=== PATIENT | female | born 1960 | race Caucasian/White ===

== ENCOUNTER → 2016-11-11 | Outpatient (CLI) | payer MEDICARE ==
--- NOTE | 2016-11-11 16:21 | XR ---
EXAMINATION TYPE: XR chest 2V DATE OF EXAM: 11/11/2016 3:17 PM HISTORY: Left-sided rib pain. REFERENCE: Previous study dated 03/21/2014. FINDINGS: The lungs are clear. Pleural spaces are clear. Heart size is normal. No left-sided rib lesi on is seen. IMPRESSION: NORMAL CHEST.
--- NOTE | 2016-11-11 16:23 | XR ---
EXAMINATION TYPE: XR ribs LT DATE OF EXAM ORDERED: 11/11/2016 3:17 PM HISTORY: Left-sided rib pain. COMPARISON: None. FINDINGS: No displaced rib fractures seen. The underlying lung is unremarkable. No pneumothorax is i dentified. IMPRESSION: I DO NOT IDENTIFY A DISPLACED RIB FRACTURE AT THIS TIME.
== END | disposition home or self-care (01) ==
LOC: RADXRMAIN 14:58
PROVIDERS: ATTEND Internal Medicine
DX: S29.9XXA Unspecified injury of thorax, initial encounter (principal); R05 Cough
CPT/HCPCS: 71020

== ENCOUNTER → 2017-06-14 | Outpatient (CLI) | payer MEDICARE ==
--- NOTE | 2017-06-15 11:44 | MM ---
Reason for exam: screening (asymptomatic). Last mammogram was performed 2 years and 1 month ago. History: Patient is postmenopausal. Family history of breast cancer in mother at age 50, breast cancer in maternal grandmother, and breast cancer in maternal aunt. Physical Findings: A clinical breast exam by your physician is recommended on an annual basis and results should be correlated with mammographic findings. MG Screening Mammo w CAD Bilateral CC and MLO view(s) were taken. XCCL view(s) were taken of the left breast. Prior study comparison: April 29, 2015, bilateral MG screening mammo w CAD. March 23, 2014, bilateral MG screening mammo w CAD. There are scattered fibroglandular densities. No significant changes when compared with prior studies. ASSESSMENT: Benign, BI-RAD 2 RECOMMENDATION: Routine screening mammogram of both breasts in 1 year.
== END | disposition home or self-care (01) ==
LOC: RADMAMWWP 13:38
PROVIDERS: ATTEND Internal Medicine
DX: Z12.31 Encounter for screening mammogram for malignant neoplasm of breast (principal)

== ENCOUNTER → 2017-09-23 | Outpatient (CLI) | payer MEDICARE ==
[2017-09-23 09:26] LABS: Basophils # (A) 0.1 k/uL (0-0.2); Basophils % (A) 1 %; CH 29.9; CHCM 32.6; Eosinophils # (A) 0.3 k/uL (0-0.7); Eosinophils % (A) 5 %; HCT 39.6 % (34.0-46.0); HDW 2.06; HGB 12.7 gm/dL (11.4-16.0); Luc # (Auto) 0.16; Luc % (Auto) 3; Lymphocytes # (A) 2.3 k/uL (1.0-4.8); Lymphocytes % (A) 38 %; MCH 29.5 pg (25.0-35.0); MCHC 32.1 g/dL (31.0-37.0); MCV 92.1 fL (80.0-100.0); Mean Platelet Volume 6.6; Monocytes # (A) 0.5 k/uL (0-1.0); Monocytes % (A) 8 %; Neutrophils # (A) 2.8 k/uL (1.3-7.7); Neutrophils % (A) 46 %; RBC 4.29 m/uL (3.80-5.40); RDW 13.3 % (11.5-15.5); WBC 6.1 k/uL (3.8-10.6); WBC (Perox) 6.33
[2017-09-23 09:40] LABS: Carbamazepine (Tegretol) 5.5 ug/mL
== END | disposition home or self-care (01) ==
LOC: LABWHC1 09:03
PROVIDERS: ATTEND Psychiatry & Neurology Neurology
DX: G40.209 Localization-related (focal) (partial) symptomatic epilepsy and epileptic syndromes with complex partial seizures, not intractable, without status epilepticus (principal)
CPT/HCPCS: 36415; 80156; 80177; 84450; 84460; 85025

== ENCOUNTER → 2018-09-26 | Outpatient (CLI) | payer MEDICARE | LOC: LABWHC1 10:24 | PROVIDERS: ATTEND Physician Assistant | DX: R21 Rash and other nonspecific skin eruption (principal) | CPT/HCPCS: 36415; 82565; 84450; 84460; 84520 ==

== ENCOUNTER 2019-02-16 09:57 | Day surgery (SDC) | payer MEDICARE ==
[2019-02-14 11:21] VITALS: BMI 29.0
[~2019-02-16 09:57] MED LIST: LACTATED RINGERS 1,000 ML IV SCH; LIDOCAINE 1% 20 ML VIAL (10MG/ML) FOR IV START INTRADERMA PRN; MIDAZOLAM (PF) 2 MG/2 ML VIAL IV PRN
[2019-02-16 10:53] VITALS: TEMP 98.4
[2019-02-16] MEDS ORDERED: LIDOCAINE 1% 20 ML VIAL (10MG/ML) FOR IV START INTRADERMA ONE (10:55)
[2019-02-16] MEDS ORDERED: LIDOCAINE 1% INJ 10MG/ML (20 ML MDV) ONE (11:52)
[2019-02-16] MEDS ORDERED: PROPOFOL 10 MG/ML 20 ML VIAL IV ONE (11:52)
[2019-02-16 12:20] VITALS: RESP 16
--- NOTE | 2019-02-16 12:24 | P.PCN ---
Date of Procedure: 02/16/19 Procedure(s) Performed: Procedure: Total colonoscopy. Preoperative diagnosis: Screening for neoplasia, patient has history of polyps. Postoperative diagnosis: Exam within normal limits. Preparation: HalfLytely prep. Sedation: Was provided by anesthesia. Brief clinical history: The patient is a 58-year-old female who is scheduled for this evaluation for screening for neoplasia because of history of polyps. Her last exam was in 2008. The patient has no abdominal complaints, bleeding or anemia. Procedure: With the patient on her left lateral decubitus position and after informed consent and adequate sedation, the perianal area was inspected and it did not show any fissures or fistulas. No masses felt on digital rectal examination. The Olympus CFH 190L video colonoscope was then inserted in the rectum in the usual fashion and advanced to the cecum. The mucosa appeared healthy. No polyps or tumors were seen or any obvious diverticular disease or other pathology. I retroflexed the endoscope in the rectum before the endoscope was withdrawn. The patient tolerated the procedure well. Plan: The patient was reassured. She will follow-up with you as planned and I recommended repeat exam in 5 years because of the history of polyps.
[2019-02-16 12:33] VITALS: BP 101/60; PULSE 70
== END 2019-02-16 12:44 | disposition home or self-care (01) ==
LOC: ORWHC2ENDO 09:57
DX: Z12.11 Encounter for screening for malignant neoplasm of colon (principal); Z86.010 Personal history of colon polyps; K21.9 Gastro-esophageal reflux disease without esophagitis; J45.909 Unspecified asthma, uncomplicated; E07.9 Disorder of thyroid, unspecified; G40.909 Epilepsy, unspecified, not intractable, without status epilepticus; F17.210 Nicotine dependence, cigarettes, uncomplicated; Z79.890 Hormone replacement therapy; Z79.899 Other long term (current) drug therapy
CPT/HCPCS: J2001; J2704; G0105

== ENCOUNTER → 2019-02-22 | Outpatient (CLI) | payer MEDICARE ==
--- NOTE | 2019-02-23 12:12 | MM ---
Reason for exam: screening (asymptomatic). Last mammogram was performed 1 year and 8 months ago. History: Patient is postmenopausal. Family history of breast cancer in mother at age 50, breast cancer in maternal grandmother, and breast cancer in maternal aunt. Physical Findings: A clinical breast exam by your physician is recommended on an annual basis and results should be correlated with mammographic findings. MG 3D Screening Mammo W/Cad Bilateral CC and MLO view(s) were taken. Prior study comparison: June 14, 2017, bilateral MG screening mammo w CAD. April 29, 2015, bilateral MG screening mammo w CAD. The breast tissue is heterogeneously dense. This may lower the sensitivity of mammography. There is no discrete abnormality. No significant changes when compared with prior studies. ASSESSMENT: Benign, BI-RAD 2 RECOMMENDATION: Routine screening mammogram of both breasts in 1 year.
== END ==
LOC: RADMAMWWP 14:05
PROVIDERS: ATTEND Internal Medicine
DX: Z12.31 Encounter for screening mammogram for malignant neoplasm of breast (principal)
CPT/HCPCS: 77063; 77067

== ENCOUNTER → 2019-07-25 | Outpatient (CLI) | payer MEDICARE ==
[2019-07-26 08:54] LABS: Levetiracetam (Keppra) 5.9 ug/mL (3.0-60.0)
== END | disposition home or self-care (01) ==
LOC: LABWHC1 09:13
PROVIDERS: ATTEND Psychiatry & Neurology Neurology
DX: G40.209 Localization-related (focal) (partial) symptomatic epilepsy and epileptic syndromes with complex partial seizures, not intractable, without status epilepticus (principal)
CPT/HCPCS: 36415; 80177; 80183

== ENCOUNTER → 2020-01-24 | Outpatient (CLI) | payer MEDICARE ==
[2020-01-25 07:42] LABS: Levetiracetam (Keppra) 30.1 ug/mL (3.0-60.0)
== END | disposition home or self-care (01) ==
LOC: LABWHC1 07:58
PROVIDERS: ATTEND Psychiatry & Neurology Neurology
DX: G40.209 Localization-related (focal) (partial) symptomatic epilepsy and epileptic syndromes with complex partial seizures, not intractable, without status epilepticus (principal)
CPT/HCPCS: 36415; 80177; 80183

== ENCOUNTER → 2020-07-18 | Outpatient (CLI) | payer MEDICARE ==
--- NOTE | 2020-07-18 13:52 | BD ---
EXAMINATION TYPE: Axial Bone Density DATE OF EXAM: 07/18/2020 COMPARISON: NONE CLINICAL HISTORY: Height: 65.2 IN Weight: 187 LBS FRAX RISK QUESTIONS: Secondary Osteoporosis: 3. Menopause before 45: TOTAL HYST AGE 34 RISK FACTORS HISTORY OF: History of Wrist Fracture: LEFT AGE 51 Active: YES Diet low in dairy products/other sources of calcium: YES Postmenopausal woman: TOTAL HYST AGE 34 Take estrogen and/or progesterone medications: NOT NOW How long: PREMARIN AGE 34 - 34 MEDICATIONS: Thyroid Medications: YES Which medication: Synthroid How Lon YEARS Additional Medications: SYNTHROID, EPILEPSY MEDS, ADVAIR, PAROXETIN,OMEPRAZOLE, ALPHZOLAM, SIMVASTATI N EXAM MEASUREMENTS: Bone mineral densitometry was performed using the [employer] System. Bone mineral density as measured about the Lumbar spine is: ----- L1-L4(G/cm2): 0.908 T Score Values are as follows: ----- L2: -3.0 ----- L3: -1.7 ----- L4: -1.8 ----- L1-L4: -2.3 Bone mineral density BASELINE Bone mineral density about the R hip (g/cm2): 0.708 Bone mineral density about the L hip (g/cm2): 0.664 T Score values are as follows: -----R Neck: -2.7 -----L Neck: -2.4 -----R Total: -1.9 -----L Total: -1.8 Bone mineral density BASELINE IMPRESSION: Osteopenia NOTE: T-SCORE=SD OF THE YOUNG ADULT MEAN.
== END | disposition home or self-care (01) ==
LOC: RADBDWWP 09:03
PROVIDERS: ATTEND Internal Medicine
DX: M85.80 Other specified disorders of bone density and structure, unspecified site (principal)
CPT/HCPCS: 77080

== ENCOUNTER → 2020-08-16 | Outpatient (CLI) | payer MEDICARE ==
--- NOTE | 2020-08-16 08:36 | CT ---
EXAMINATION TYPE: CT sinus wo con DATE OF EXAM: 08/16/2020 COMPARISON: NONE HISTORY: chronic sinusitis per order. Headaches. CT DLP: 567 mGycm. Automated Exposure Control for Dose Reduction was Utilized. TECHNIQUE: CT scan of the sinuses is performed without contrast, axial images are obtained, coronal r eformatted images are also reviewed. FINDINGS: Hypoplastic or not deformed right frontal sinus, remainder of the paranasal sinuses includi ng the left frontal, bilateral ethmoid, bilateral sphenoid, and bilateral maxillary sinuses bilateral ly are well-aerated without abnormal opacification or suspicious air-fluid level. The ostiomeatal co mplex is patent bilaterally on coronal image 30. Visualized portion of mastoid air cells show no abnormal opacification. The globes are intact bilate rally. The nasal septum is deviated to left of midline inferiorly. IMPRESSION: The sinuses are clear and the ostiomeatal complex is patent bilaterally.
== END | disposition home or self-care (01) ==
LOC: RADCTMAIN 07:25
PROVIDERS: ATTEND Internal Medicine
DX: J32.9 Chronic sinusitis, unspecified (principal)
CPT/HCPCS: 70486

== ENCOUNTER → 2020-10-24 | Outpatient (CLI) | payer MEDICARE ==
--- NOTE | 2020-10-25 10:42 | MM ---
Reason for exam: screening (asymptomatic). Last mammogram was performed 1 year and 8 months ago. History: Patient is postmenopausal. Family history of breast cancer in mother at age 50, breast cancer in maternal grandmother, and breast cancer in maternal aunt. Physical Findings: A clinical breast exam by your physician is recommended on an annual basis and results should be correlated with mammographic findings. MG 3D Screening Mammo W/Cad Bilateral CC and MLO view(s) were taken. Prior study comparison: February 22, 2019, bilateral MG 3d screening mammo w/cad. June 14, 2017, bilateral MG screening mammo w CAD. There are scattered fibroglandular densities. There is no discrete abnormality. No significant changes when compared with prior studies. ASSESSMENT: Negative, BI-RAD 1 RECOMMENDATION: Routine screening mammogram of both breasts in 1 year.
== END | disposition home or self-care (01) ==
LOC: RADMAMWWP 13:35
PROVIDERS: ATTEND Internal Medicine
DX: Z12.31 Encounter for screening mammogram for malignant neoplasm of breast (principal)
CPT/HCPCS: 77063; 77067

== ENCOUNTER → 2021-02-04 | Outpatient (CLI) | payer MEDICARE ==
--- NOTE | 2021-02-05 13:55 | XR ---
EXAMINATION TYPE: XR chest 2V DATE OF EXAM: 02/04/2021 COMPARISON: 11/11/2016 INDICATION: Cough, congestion TECHNIQUE: Frontal and lateral views of the chest are obtained. FINDINGS: The heart size is normal. The pulmonary vasculature is normal. The lungs are clear. There is hyperinflation with some flattening of the diaphragms. There is increa sed AP diameter. There is increased retrosternal airspace Findings could be compatible with emphysema tous change. IMPRESSION: 1. No acute pulmonary process. 2. Clinical correlation recommended for emphysematous change
== END | disposition home or self-care (01) ==
LOC: RADXRMAIN 15:42
PROVIDERS: ATTEND Internal Medicine
DX: R05 Cough (principal)
CPT/HCPCS: 71046

== ENCOUNTER 2021-03-31 06:17 | Inpatient (IN) | payer MEDICARE ==
[2021-03-31] MEDS ORDERED: IPRATROPIUM-ALBUTEROL 3 ML NEB INHALATION STA ×2 (06:26→08:48)
[2021-03-31] MEDS ORDERED: methylPREDNISolone SOD SUCCI 125 MG/2 ML VIAL IV STA (06:26)
[2021-03-31 06:50] LABS: Basophils % (A) 0 %; Eosinophils # (A) 0.7 k/uL (0-0.7); Eosinophils % (A) 7 %; HCT 39.5 % (34.0-46.0); HGB 12.7 gm/dL (11.4-16.0); Lymphocytes # (A) 2.8 k/uL (1.0-4.8); Lymphocytes % (A) 28 %; MCV 87.3 fL (80.0-100.0); Monocytes # (A) 0.7 k/uL (0-1.0); Monocytes % (A) 7 %; Neutrophils # (A) 5.4 k/uL (1.3-7.7); Neutrophils % (A) 55 %; Platelet Count 363 k/uL (150-450); RBC 4.52 m/uL (3.80-5.40); RDW 14.1 % (11.5-15.5); WBC 9.9 k/uL (3.8-10.6)
[2021-03-31 07:00] LABS: Partial Thromboplastin Time 25.2 sec (22.0-30.0); Prothrombin Time 11.1 sec (9.0-12.0)
[2021-03-31 07:08] LABS: Albumin 4.3 g/dL (3.5-5.0); Calcium 9.6 mg/dL (8.4-10.2); Magnesium 1.6 mg/dL (1.6-2.3); Total Bilirubin 0.3 mg/dL (0.2-1.3); Total Protein 7.4 g/dL (6.3-8.2)
--- NOTE | 2021-03-31 07:19 | ED ---
SOB HPI - General Chief Complaint: Shortness of Breath Stated Complaint: SOB Time Seen by Provider: 03/31/21 06:22 Source: patient Mode of arrival: wheelchair Limitations: no limitations - History of Present Illness Initial Comments: 60yo female presenting for cc of dyspnea. pt states that for the past two weeks her asthma has been acting up. she states she feels like she cant take a good deep breath. admits to occasional cough. denies nausea, vomiting, chest pain, jaw pain, arm pain, diaphoresis, leg swelling. Patient appears nontoxic in no acute distress. - Related Data Home Medications Medication Instructions Recorded Confirmed Fluticasone/Salmeterol [Advair 1 puff INHALATION RT-BID 02/14/19 03/31/21 250-50 Diskus] Levothyroxine Sodium [Synthroid] 25 mcg PO DAILY 02/14/19 03/31/21 ALPRAZolam [Xanax] 1 mg PO HS 03/31/21 03/31/21 EPINEPHrine [Primatene Mist] 1 puff INHALATION RT-QID PRN 03/31/21 03/31/21 Eslicarbazepine Acetate [Aptiom] 800 mg PO DAILY 03/31/21 03/31/21 Ipratropium-Albuterol Nebulize 3 ml INHALATION RT-QID PRN 03/31/21 03/31/21 [Duoneb 0.5 mg-3 mg/3 ml Soln] Migraine Relief(Otc) 25mg 25 mg PO DAILY PRN 03/31/21 03/31/21 Multivitamins, Thera [Multivitamin 1 tab PO DAILY 03/31/21 03/31/21 (formulary)] Omeprazole Magnesium [PriLOSEC OTC] 20 mg PO DAILY 03/31/21 03/31/21 PARoxetine HCL [Paxil] 40 mg PO DAILY 03/31/21 03/31/21 Simvastatin [Zocor] 40 mg PO DAILY 03/31/21 03/31/21 levETIRAcetam [Keppra Xr] 1,000 mg PO DAILY 03/31/21 03/31/21 levETIRAcetam [Keppra Xr] 1,500 mg PO HS 03/31/21 03/31/21 Allergies Allergy/AdvReac Type Severity Reaction Status Date / Time No Known Allergies Allergy Verified 03/31/21 09:00 Review of Systems ROS Statement: Those systems with pertinent positive or pertinent negative responses have been documented in the HPI. ROS Other: All systems not noted in ROS Statement are negative. Past Medical History Past Medical History: Asthma, GERD/Reflux, Seizure Disorder, Thyroid Disorder Additional Past Medical History / Comment(s): Epilepsy for 17 years History of Any Multi-Drug Resistant Organisms: None Reported Past Surgical History: Hysterectomy Additional Past Surgical History / Comment(s): Colonoscopy Past Anesthesia/Blood Transfusion Reactions: No Reported Reaction Past Psychological History: Depression Smoking Status: Former smoker Past Alcohol Use History: None Reported Past Drug Use History: None Reported - Past Family History Mother Family Medical History: Cancer Additional Family Medical History / Comment(s): Breast General Exam - General Exam Comments Initial Comments: General: The patient is awake and alert, in no distress Eye: +3 mm pupils are equal, round and reactive to light, extra-ocular movements are intact. No nystagmus. There is normal conjunctiva bilaterally. No signs of icterus. Ears, nose, mouth and throat: There are moist mucous membranes and no oral lesions. Neck: The neck is supple, there is no tenderness or JVD. Cardiovascular: There is a regular rate and rhythm. No murmur, rub or gallop is appreciated. Respiratory: Lung sounds are diminished. Respirations are non-labored, breath sounds are equal. Inspiratory and expiratory wheeze. No stridor, rales, or rhonchi. Musculoskeletal: Normal ROM, no tenderness. Strength 5/5. Sensation intact. Radial and DP pulses equal bilaterally 2+. Neurological: A&O x 3. CN II-XII intact grossly, There are no obvious motor or sensory deficits. Coordination appears grossly intact. Speech is normal. Skin: Skin is warm and dry and no rashes or lesions are noted. NO LE edema, or calf pain/swelling Psychiatric: Cooperative, appropriate mood & affect, normal judgment. Limitations: no limitations Course Vital Signs 03/31/21 03/31/21 03/31/21 06:17 06:40 07:37 Temperature 98 F Pulse Rate 101 H 82 Respiratory 32 H 18 Rate Blood Pressure 149/80 O2 Sat by Pulse 92 L Oximetry 03/31/21 03/31/21 03/31/21 07:49 07:50 09:01 Temperature Pulse Rate 85 85 87 Respiratory 20 Rate Blood Pressure 119/64 O2 Sat by Pulse 97 Oximetry 03/31/21 03/31/21 09:14 09:33 Temperature Pulse Rate 88 86 Respiratory 20 Rate Blood Pressure 123/86 O2 Sat by Pulse 96 Oximetry - Reevaluation(s) Reevaluation #1: mild improvement 1st treatment in ER, pt has done numerous treatments >3 prior to arrival Medical Decision Making - Medical Decision Making After two treatments in ER and >3 nebulized treatments at home prior to arrival. pt continues to ahve diminished sounds with wheezing. pt will be admitted for iv steroids and further treatments. Dr [place] evaluated patient and is agreeable to care plan and admission. - Lab Data Result diagrams: 03/31/21 06:39 03/31/21 06:39 Lab Results 03/31/21 03/31/21 03/31/21 Range/Units 06:39 06:39 06:39 WBC 9.9 (3.8-10.6) k/uL RBC 4.52 (3.80-5.40) m/uL Hgb 12.7 (11.4-16.0) gm/dL Hct 39.5 (34.0-46.0) % MCV 87.3 (80.0-100.0) fL MCH 28.0 (25.0-35.0) pg MCHC 32.0 (31.0-37.0) g/dL RDW 14.1 (11.5-15.5) % Plt Count 363 (150-450) k/uL MPV 7.0 Neutrophils % 55 % Lymphocytes % 28 % Monocytes % 7 % Eosinophils % 7 % Basophils % 0 % Neutrophils # 5.4 (1.3-7.7) k/uL Lymphocytes # 2.8 (1.0-4.8) k/uL Monocytes # 0.7 (0-1.0) k/uL Eosinophils # 0.7 (0-0.7) k/uL Basophils # 0.0 (0-0.2) k/uL PT 11.1 (9.0-12.0) sec INR 1.0 (<1.2) APTT 25.2 (22.0-30.0) sec Sodium 138 (137-145) mmol/L Potassium 4.0 (3.5-5.1) mmol/L Chloride 102 (98-107) mmol/L Carbon Dioxide 28 (22-30) mmol/L Anion Gap 8 mmol/L BUN 12 (7-17) mg/dL Creatinine 0.87 (0.52-1.04) mg/dL Est GFR (CKD-EPI)AfAm 85 (>60 ml/min/1.73 sqM) Est GFR (CKD-EPI)NonAf 73 (>60 ml/min/1.73 sqM) Glucose 121 H (74-99) mg/dL Plasma Lactic Acid Yanick (0.7-2.0) mmol/L Calcium 9.6 (8.4-10.2) mg/dL Magnesium 1.6 (1.6-2.3) mg/dL Total Bilirubin 0.3 (0.2-1.3) mg/dL AST 27 (14-36) U/L ALT 22 (4-34) U/L Alkaline Phosphatase 108 (38-126) U/L Troponin I (0.000-0.034) ng/mL NT-Pro-B Natriuret Pep pg/mL Total Protein 7.4 (6.3-8.2) g/dL Albumin 4.3 (3.5-5.0) g/dL 03/31/21 03/31/21 03/31/21 Range/Units 06:39 06:39 06:39 WBC (3.8-10.6) k/uL RBC (3.80-5.40) m/uL Hgb (11.4-16.0) gm/dL Hct (34.0-46.0) % MCV (80.0-100.0) fL MCH (25.0-35.0) pg MCHC (31.0-37.0) g/dL RDW (11.5-15.5) % Plt Count (150-450) k/uL MPV Neutrophils % % Lymphocytes % % Monocytes % % Eosinophils % % Basophils % % Neutrophils # (1.3-7.7) k/uL Lymphocytes # (1.0-4.8) k/uL Monocytes # (0-1.0) k/uL Eosinophils # (0-0.7) k/uL Basophils # (0-0.2) k/uL PT (9.0-12.0) sec INR (<1.2) APTT (22.0-30.0) sec Sodium (137-145) mmol/L Potassium (3.5-5.1) mmol/L Chloride (98-107) mmol/L Carbon Dioxide (22-30) mmol/L Anion Gap mmol/L BUN (7-17) mg/dL Creatinine (0.52-1.04) mg/dL Est GFR (CKD-EPI)AfAm (>60 ml/min/1.73 sqM) Est GFR (CKD-EPI)NonAf (>60 ml/min/1.73 sqM) Glucose (74-99) mg/dL Plasma Lactic Acid Yanick 0.8 (0.7-2.0) mmol/L Calcium (8.4-10.2) mg/dL Magnesium (1.6-2.3) mg/dL Total Bilirubin (0.2-1.3) mg/dL AST (14-36) U/L ALT (4-34) U/L Alkaline Phosphatase (38-126) U/L Troponin I <0.012 (0.000-0.034) ng/mL NT-Pro-B Natriuret Pep 39 pg/mL Total Protein (6.3-8.2) g/dL Albumin (3.5-5.0) g/dL Disposition Clinical Impression: COPD exacerbation, Dyspnea Disposition: ADMITTED IP TO THIS [facility] Condition: Stable Is patient prescribed a controlled substance at d/c from ED?: No Time of Disposition: 10:18 Decision to Admit Reason: Admit from EC Decision Date: 03/31/21 Decision Time: 10:18
--- NOTE | 2021-03-31 08:10 | XR ---
EXAMINATION TYPE: XR chest 2V DATE OF EXAM: 03/31/2021 COMPARISON: 02/04/2021 HISTORY: Difficulty breathing TECHNIQUE: Frontal and lateral views of the chest are obtained. FINDINGS: Multiple overlying leads. Heart size is within normal limits. Atherosclerotic aortic knob. No focal consolidation, pneumothorax or pleural effusion. Osteopenia and degenerative changes of the thoracic spine. Hyperaeration of lungs and flattening of the diaphragms suggestive of COPD. IMPRESSION: 1. Findings are suggestive of COPD. No acute pulmonary disease.
[2021-03-31] MEDS ORDERED: ACETAMINOPHEN TAB 325 MG TAB PO STA (09:36)
[2021-03-31 11:57] LABS: Glucose,Whole Blood 161 mg/dL (75-99)
[2021-03-31] MEDS: IPRATROPIUM-ALBUTEROL 3 ML NEB INHALATION SCH ×3 (12:13→19:24)
[2021-03-31] MEDS: LEVOTHYROXINE 25 MCG TAB PO SCH (12:30)
[2021-03-31] MEDS: levETIRAcetam 500 MG TAB PO SCH (12:30)
[2021-03-31] MEDS: PANTOPRAZOLE 40 MG TABLET PO SCH (12:30)
[2021-03-31] MEDS: ESLICARBAZEPINE ACETATE 800 MG PO SCH (13:27)
[2021-03-31] MEDS: PAROXETINE 40 MG PO SCH (13:32)
[2021-03-31] MEDS ORDERED: [UNRECOGNIZED DRUG - OTHER] INHALATION PRN (19:22)
[2021-03-31] MEDS ORDERED: IPRATROPIUM-ALBUTEROL 3 ML NEB INHALATION PRN (19:22)
[2021-03-31] MEDS: SYMBICORT 80-4.5 MCG INHALER INHALATION SCH (19:46)
--- NOTE | 2021-03-31 20:03 | P.HPIM ---
History of Present Illness H&P Date: 03/31/21 Nay Goyal, is a 60-year-old female who presented to [facility] emergency room with a chief complaint of worsening shortness of breath She was evaluated in the emergency room, vital examination on presentation revealed a temperature of 98 pulse 101 respiration 32 blood pressure 149/80 pulse ox 92% on room air. White blood count was 9.9 hemoglobin 12.7 platelet count 363 INR 1.0 sodium 138 potassium 4.0 chloride 102 CO2 28 BUN 12 creatinine 0.87 Mackey virus PCR was negative. Chest x-ray done in the emergency room revealed evidence of hyperinflation of the lungs suggestive of COPD, otherwise no acute pulmonary disease. EKG done in the emergency room revealed normal sinu s rhythm normal EKG. Patient was started on IV Solu-Medrol, inhaled bronchodilators, and was admitted to telemetry floor for further evaluation and treatment. Patient was evaluated on the telemetry floor she is complaining of shortness of breath cough and wheezing, she is also complaining of pain in the mid thoracic spine area, otherwise she denies any complaints Past Medical History Past Medical History: Asthma, GERD/Reflux, Seizure Disorder, Thyroid Disorder Additional Past Medical History / Comment(s): Epilepsy for 17 years History of Any Multi-Drug Resistant Organisms: None Reported Past Surgical History: Hysterectomy Additional Past Surgical History / Comment(s): Colonoscopy Past Anesthesia/Blood Transfusion Reactions: No Reported Reaction Past Psychological History: Depression Smoking Status: Former smoker Past Alcohol Use History: None Reported Past Drug Use History: None Reported - Past Family History Mother Family Medical History: Cancer Additional Family Medical History / Comment(s): Breast Father Family Medical History: Asthma, Seizure Disorder Additional Family Medical History / Comment(s): Severe allergies. Medications and Allergies Home Medications Medication Instructions Recorded Confirmed Type Fluticasone/Salmeterol [Advair 1 puff INHALATION RT-BID 02/14/19 03/31/21 History 250-50 Diskus] Levothyroxine Sodium [Synthroid] 25 mcg PO DAILY 02/14/19 03/31/21 History ALPRAZolam [Xanax] 1 mg PO HS 03/31/21 03/31/21 History EPINEPHrine [Primatene Mist] 1 puff INHALATION RT-QID PRN 03/31/21 03/31/21 Hi story Eslicarbazepine Acetate [Aptiom] 800 mg PO DAILY 03/31/21 03/31/21 History Ipratropium-Albuterol Nebulize 3 ml INHALATION RT-QID PRN 03/31/21 03/31/21 History [Duoneb 0.5 mg-3 mg/3 ml Soln] Migraine Relief(Otc) 25mg 25 mg PO DAILY PRN 03/31/21 03/31/21 History Multivitamins, Thera [Multivitamin 1 tab PO DAILY 03/31/21 03/31/21 History (formulary)] Omeprazole Magnesium [PriLOSEC OTC] 20 mg PO DAILY 03/31/21 03/31/21 History PARoxetine HCL [Paxil] 40 mg PO DAILY 03/31/21 03/31/21 History Simvastatin [Zocor] 40 mg PO DAILY 03/31/21 03/31/21 History levETIRAcetam [Keppra Xr] 1,000 mg PO DAILY 03/31/21 03/31/21 History levETIRAcetam [Keppra Xr] 1,500 mg PO HS 03/31/21 03/31/21 History Allergies Allergy/AdvReac Type Severity Reaction Status Date / Time No Known Allergies Allergy Verified 03/31/21 09:00 Physical Exam Vitals: Vital Signs Temp Pulse Resp BP Pulse Ox 03/31/21 12:26 89 03/31/21 12:13 86 03/31/21 11:58 88 18 126/90 94 L 03/31/21 11:14 98.5 F 85 18 132/63 96 03/31/21 09:33 86 20 123/86 96 03/31/21 09:14 88 03/31/21 09:01 87 03/31/21 07:50 85 03/31/21 07:49 85 20 119/64 97 03/31/21 07:37 82 03/31/21 06:40 18 03/31/21 06:17 98 F 101 H 32 H 149/80 92 L Intake and Output 03/30/21 03/31/21 03/31/21 22:59 06:59 14:59 Other: Weight 81.647 kg In general patient is alert and oriented x-3 in no distress HEENT head normocephalic and atraumatic Neck is supple no JVD no goiter no lymphadenopathy no carotid bruit Chest examination reveals a few scattered crackles in both lung escobar with wheezing and prolonged expiratory phase Cardiac exam reveals regular heart sounds S1 and S2 no gallops no murmurs Abdomen is soft nontender no organomegaly with normal bowel sounds Extremity exam reveals no edema no cyanosis or clubbing Neurological examination reveals no gross focal deficits Results CBC & Chem 7: 03/31/21 06:39 03/31/21 06:39 Labs: Abnormal Lab Results - Last 24 Hours (Table) 03/31/21 03/31/21 Range/Units 06:39 11:55 Glucose 121 H (74-99) mg/dL POC Glucose (mg/dL) 161 H (75-99) mg/dL Assessment and Plan Plan: 1. Acute exacerbation of chronic obstructive pulmonary disease 2. Underlying history of hypertension 3. Underlying history of hyperlipidemia 4. Underlying history of hypothyroidism 5. Underlying history of seizure disorder 6. Underlying history of anxiety disorder 7. Pain in the midthoracic spine area Will check thoracic spine x-ray Will check d-dimer, continue IV steroids and inhaled bronchodilators Check labs and follow-up in a.m. For DVT prophylaxis subcu Lovenox For GI prophylaxis by mouth Protonix
--- NOTE | 2021-03-31 21:08 | XR ---
EXAMINATION TYPE: XR thoracic spine complete DATE OF EXAM: 03/31/2021 COMPARISON: 02/04/2021 HISTORY: Back pain TECHNIQUE: 3 views FINDINGS: Thoracic vertebra have fairly normal alignment. There is osteopenia. I see no compression f racture. There is no paraspinal mass. IMPRESSION: Negative thoracic spine exam. No fracture. No change compared to old chest x-ray.
[2021-03-31] MEDS: ACETAMINOPHEN TAB 500 MG TAB PO PRN (21:20)
[2021-03-31] MEDS: ALPRAZolam 1 MG TAB PO SCH (21:21)
[2021-03-31] MEDS: ATORVASTATIN 20 MG TAB PO SCH (21:21)
[2021-03-31] MEDS: IPRATROPIUM-ALBUTEROL 3 ML NEB INHALATION PRN (23:57)
[2021-04-01] MEDS: ACETAMINOPHEN TAB 500 MG TAB PO PRN ×2 (05:37→13:47)
[2021-04-01] MEDS: LEVOTHYROXINE 25 MCG TAB PO SCH (05:38)
[2021-04-01] MEDS: SYMBICORT 80-4.5 MCG INHALER INHALATION SCH ×2 (06:14→19:52)
[2021-04-01] MEDS: IPRATROPIUM-ALBUTEROL 3 ML NEB INHALATION PRN (06:14)
[2021-04-01] MEDS: IPRATROPIUM-ALBUTEROL 3 ML NEB INHALATION SCH ×4 (07:52→19:53)
[2021-04-01] MEDS: PARoxetine 20 MG TAB PO SCH (08:43)
[2021-04-01] MEDS: MULTIVITAMINS, THERA 1 EACH TAB PO SCH (08:43)
[2021-04-01] MEDS: ENOXAPARIN 40 MG/0.4 ML SYRINGE SQ SCH (08:43)
[2021-04-01] MEDS: PANTOPRAZOLE 40 MG TABLET PO SCH (08:43)
[2021-04-01] MEDS: levETIRAcetam 500 MG TAB PO SCH (08:43)
[2021-04-01] MEDS: PAROXETINE 40 MG PO SCH (08:45)
[2021-04-01] MEDS: ESLICARBAZEPINE ACETATE 800 MG PO SCH (09:00)
[2021-04-01 10:23] LABS: HCT 34.2 % (37.2-46.3); HGB 10.9 g/dL (12.0-15.0); MCH 28.3 pg (27.0-32.0); MCHC 31.9 g/dL (32.0-37.0); MCV 88.8 fL (80.0-97.0); Mean Platelet Volume 9.9 fL (9.5-12.2); Platelet Count 373 X 10*3/uL (140-440); RBC 3.85 X 10*6/uL (4.10-5.20); WBC 18.36 X 10*3/uL (4.50-10.00)
[2021-04-01 10:57] LABS: Basophils # (A) 0.02 X 10*3/uL (0.00-0.10); Basophils % (A) 0.1 %; Eosinophils # (A) 0.03 X 10*3/uL (0.04-0.35); Eosinophils % (A) 0.2 %; Lymphocytes # (A) 1.93 X 10*3/uL (0.90-5.00); Lymphocytes % (A) 10.5 %; Monocytes # (A) 1.54 X 10*3/uL (0.20-1.00); Monocytes % (A) 8.4 %; Neutrophils # (A) 14.72 X 10*3/uL (1.80-7.70); Neutrophils % (A) 80.1 %
--- NOTE | 2021-04-01 14:39 | P.PN ---
Subjective Progress Note Date: 04/01/21 Nay Goyal, is a 60-year-old female who presented to [facility] emergency room with a chief complaint of worsening shortness of breath She was evaluated in the emergency room, vital examination on presentation revealed a temperature of 98 pulse 101 respiration 32 blood pressure 149/80 pulse ox 92% on room air. White blood count was 9.9 hemoglobin 12.7 platelet count 363 INR 1.0 sodium 138 potassium 4.0 chloride 102 CO2 28 BUN 12 creatinine 0.87 Mackey virus PCR was negative. Chest x-ray done in the emergency room revealed evidence of hyperinflation of the lungs suggestive of COPD, otherwise no acute pulmonary disease. EKG done in the emergency room revealed normal sinus rhythm normal EKG. Patient was started on IV Solu-Medrol, inhaled bronchodilators, and was admitted to telemetry floor for further evaluation and treatment. Patient was evaluated on the telemetry floor she is complaining of shortness of breath cough and wheezing, she is also complaining of pain in the mid thoracic spine area, otherwise she denies any complaints On 04/01/2021 patient was seen and examined on the medical floor she is alert and oriented 3 in no apparent distress she is complaining of more cough and wheezing she is complaining of shortness of breath with any activity otherwise she denies any complaints, at this time will add IV antibiotics, add Mucinex and check sputum culture, consult pulmonary Dr. Dumas, recheck chest x-ray to rule out any evidence of pneumonia. Patient is not ready for discharge at this Objective - Vital Signs Vital signs: Vital Signs Temp 98.0 F 04/01/21 06:42 Pulse 86 04/01/21 06:42 Resp 28 H 04/01/21 06:42 BP 108/62 04/01/21 06:42 Pulse Ox 95 04/01/21 06:42 Intake & Output 03/31/21 04/01/21 04/01/21 18:59 06:59 18:59 Intake Total 240 Balance 240 Weight 81.647 kg Intake: Oral 240 Other: # Voids 1 - Exam In general patient is alert and oriented x-3 in no distress HEENT head normocephalic and atraumatic Neck is supple no JVD no goiter no lymphadenopathy no carotid bruit Chest examination reveals a few scattered crackles in both lung escobar with wheezing and prolonged expiratory phase Cardiac exam reveals regular heart sounds S1 and S2 no gallops no murmurs Abdomen is soft nontender no organomegaly with normal bowel sounds Extremity exam reveals no edema no cyanosis or clubbing Neurological examination reveals no gross focal deficits - Labs CBC & Chem 7: 04/01/21 04:51 03/31/21 06:39 Labs: Abnormal Lab Results - Last 24 Hours (Table) 03/31/21 04/01/21 Range/Units 11:55 04:51 WBC 18.36 H (4.50-10.00) X 10*3/uL RBC 3.85 L (4.10-5.20) X 10*6/uL Hgb 10.9 L (12.0-15.0) g/dL Hct 34.2 L (37.2-46.3) % MCHC 31.9 L (32.0-37.0) g/dL POC Glucose (mg/dL) 161 H (75-99) mg/dL Assessment and Plan Plan: 1. Acute exacerbation of chronic obstructive pulmonary disease, on top of acute purulent bronchitis. Patient condition is worse today, at this time will add IV antibiotics add Mucinex check sputum culture recheck chest x-ray to rule out infiltrate and consult pulmonary Dr. Dumas 2. Underlying history of hypertension 3. Underlying history of hyperlipidemia 4. Underlying history of hypothyroidism 5. Underlying history of seizure disorder 6. Underlying history of anxiety disorder 7. Pain in the midthoracic spine area Will check thoracic spine x-ray Will check d-dimer, continue IV steroids and inhaled bronchodilators Check labs and follow-up in a.m. For DVT prophylaxis subcu Lovenox For GI prophylaxis by mouth Protonix
[2021-04-01] MEDS: AZITHROMYCIN 500 MG in SODIUM CHLORIDE 0.9% 250 ML IVPB SCH (16:03)
[2021-04-01 16:10] LABS: African American GFR (CKD) 81.1 (60.0-200.0); Albumin/Globulin Ratio 1.54 (1.60-3.17); Anion Gap 11.6 mmol/L (4.00-12.00); BUN/Creat Ratio 23.33 Ratio (12.00-20.00); Calcium 9.4 mg/dL (8.7-10.3); Carbon Dioxide 24.4 mmol/L (21.6-31.8); Globulin 2.6 g/dL (1.6-3.3); Potassium 4.6 mmol/L (3.5-5.5); Total Bilirubin 0.2 mg/dL (0.2-1.2); Total Protein 6.6 g/dL (6.2-8.2)
--- NOTE | 2021-04-01 16:13 | P.CNPUL ---
History of Present Illness Consult date: 04/01/21 Requesting physician: Koffi Carter Reason for consult: dyspnea Chief complaint: shortness of breath History of present illness: 60-year-old white female patient of Dr. Carter, with past medical history of chronic bronchial asthma, hypothyroidism, seizure disorder, depression, and former smoking history who presented to the emergency room for evaluation 2 week history of difficulty breathing. Patient has multiple ALLERGIES including to various pollens, fresh cut grass, animal dander to name a few. Patient states she has been getting ALLERGY shots from Dr. Lang, does not see a pulmono logist. She does carry [id number] smoking history and she recently quit 2 months ago. She is not on oxygen on the regular basis. Patient states that she felt like she could not take a deep breath in. She was complaining of an occasional cough, but denied any feverm denied any chest pain, no nausea vomiting or diarrhea, no leg swelling. Chest x-ray in the emergency department showed no focal consolidation, no pneumothorax or pleural effusion. There was hyperaeration of lungs and flattening of the diaphragm suggestive of COPD. Patient is on Advair Diskus for maintenance inhaler, and DuoNeb nebulized treatments. She was tested for COVID-19 was found to be negative. EKG was unremarkable. Admission blood work showed CBC within normal limits, d-dimer was negative at 0.42, electrolytes and renal profile were within normal limits, LFTs were within normal limits, lactic acid 0.8, proBNP was 39, troponin was less than 0.012. Patient was started on IV Solu-Medrol, inhaled bronchodilators, Symbicort, Lovenox, and Protonix for GI and DVT prophylaxis. Today patient is seen on medical surgical floor, she is on 3 L of oxygen, pulse ox is 96%, hemodynamically she stable, she has been afebrile. Review of Systems All systems: negative Constitutional: Denies chills, Denies fever Eyes: denies blurred vision, denies pain Ears, nose, mouth and throat: Denies headache, Denies sore throat Cardiovascular: Denies chest pain, Denies shortness of breath Respiratory: Reports dyspnea, Reports wheezing, Denies cough Gastrointestinal: Denies abdominal pain, Denies diarrhea, Denies nausea, Denies vomiting Genitourinary: Denies dysuria, Denies hematuria Musculoskeletal: Denies myalgias Integumentary: Denies pruritus, Denies rash Neurological: Denies numbness, Denies weakness Psychiatric: Denies anxiety, Denies depression Endocrine: Denies fatigue, Denies weight change Past Medical History Past Medical History: Asthma, GERD/Reflux, Seizure Disorder, Thyroid Disorder Additional Past Medical History / Comment(s): Epilepsy for 17 years History of Any Multi-Drug Resistant Organisms: None Reported Past Surgical History: Hysterectomy Additional Past Surgical History / Comment(s): Colonoscopy Past Anesthesia/Blood Transfusion Reactions: No Reported Reaction Past Psychological History: Depression Smoking Status: Former smoker Past Alcohol Use History: None Reported Past Drug Use History: None Reported - Past Family History Mother Family Medical History: Cancer Additional Family Medical History / Comment(s): Breast Father Family Medical History: Asthma, Seizure Disorder Additional Family Medical History / Comment(s): Severe allergies. Medications and Allergies Home Medications Medication Instructions Recorded Confirmed Type Fluticasone/Salmeterol [Advair 1 puff INHALATION RT-BID 02/14/19 03/31/21 History 250-50 Diskus] Levothyroxine Sodium [Synthroid] 25 mcg PO DAILY 02/14/19 03/31/21 History ALPRAZolam [Xanax] 1 mg PO HS 03/31/21 03/31/21 History EPINEPHrine [Primatene Mist] 1 puff INHALATION RT-QID PRN 03/31/21 03/31/21 History Eslicarbazepine Acetate [Aptiom] 800 mg PO DAILY 03/31/21 03/31/21 History Ipratropium-Albuterol Nebulize 3 ml INHALATION RT-QID PRN 03/31/21 03/31/21 History [Duoneb 0.5 mg-3 mg/3 ml Soln] Migraine Relief(Otc) 25mg 25 mg PO DAILY PRN 03/31/21 03/31/21 History Multivitamins, Thera [Multivitamin 1 tab PO DAILY 03/31/21 03/31/21 History (formulary)] Omeprazole Magnesium [PriLOSEC OTC] 20 mg PO DAILY 03/31/21 03/31/21 History PARoxetine HCL [Paxil] 40 mg PO DAILY 03/31/21 03/31/21 History Simvastatin [Zocor] 40 mg PO DAILY 03/31/21 03/31/21 History levETIRAcetam [Keppra Xr] 1,000 mg PO DAILY 03/31/21 03/31/21 History levETIRAcetam [Keppra Xr] 1,500 mg PO HS 03/31/21 03/31/21 History Allergies Allergy/AdvReac Type Severity Reaction Status Date / Time No Known Allergies Allergy Verified 03/31/21 09:00 Physical Exam Vitals: Vital Signs Temp Pulse Pulse Pulse Resp BP BP 04/01/21 13:26 98.2 F 81 22 124/76 04/01/21 11:22 90 04/01/21 11:09 90 04/01/21 06:42 98.0 F 86 28 H 108/62 04/01/21 06:23 88 04/01/21 06:14 92 04/01/21 05:39 04/01/21 01:25 97.9 F 97 20 107/60 04/01/21 00:10 88 03/31/21 23:58 88 03/31/21 20:12 98.0 F 96 16 117/66 03/31/21 19:42 96 03/31/21 19:24 92 03/31/21 15:50 97.9 F 99 18 116/69 03/31/21 15:35 98.5 F 90 18 126/90 03/31/21 15:15 90 03/31/21 15:04 88 Pulse Ox 04/01/21 13:26 96 04/01/21 11:22 04/01/21 11:09 04/01/21 06:42 95 04/01/21 06:23 04/01/21 06:14 04/01/21 05:39 94 L 04/01/21 01:25 95 04/01/21 00:10 03/31/21 23:58 03/31/21 20:12 94 L 03/31/21 19:42 03/31/21 19:24 96 03/31/21 15:50 93 L 03/31/21 15:35 94 L 03/31/21 15:15 03/31/21 15:04 Intake and Output 03/31/21 04/01/21 04/01/21 22:59 06:59 14:59 Intake Total 480 Balance 480 Intake: Oral 480 Other: # Voids 1 1 2 GENERAL EXAM: Alert, active, comfortable in no apparent distress. HEAD: Normocephalic/atraumatic. EYES: Normal reaction of pupils, equal size. Conjunctiva pink, sclera white. NOSE: Clear with pink turbinates. THROAT: No erythema or exudates. NECK: No masses, no JVD, no thyroid enlargement, no adenopathy. CHEST: No chest wall deformity. Symmetrical expansion. LUNGS: Equal air entry with a few scattered bibasilar crackles, diffuse wheezes and prolonged expiratory phase CVS: Regular rate and rhythm, normal S1 and S2, no gallops, no murmurs, no rubs ABDOMEN: Soft, nontender. No hepatosplenomegaly, normal bowel sounds, no guarding or rigidity. EXTREMITIES: No clubbing, no edema, no cyanosis, 2+ pulses and upper and lower extremities. MUSCULOSKELETAL: Muscle strength and tone normal. SPINE: No scoliosis or deformity SKIN: No rashes CENTRAL NERVOUS SYSTEM: Alert and oriented -3. No focal deficits, tone is normal in all 4 extremities. PSYCHIATRIC: Alert and oriented -3. Appropriate affect. Intact judgment and insight. Results - Laboratory Findings CBC and BMP: 04/01/21 04:51 03/31/21 06:39 PT/INR, D-dimer PT 11.1 sec (9.0-12.0) 03/31/21 06:39 INR 1.0 (<1.2) 03/31/21 06:39 D-Dimer 0.42 mg/L FEU (<0.60) 03/31/21 19:51 Abnormal lab findings: Abnormal Labs 03/31/21 03/31/21 04/01/21 06:39 11:55 04:51 WBC 18.36 H RBC 3.85 L Hgb 10.9 L Hct 34.2 L MCHC 31.9 L Immature Gran # 0.12 H Neutrophils # 14.72 H Monocytes # 1.54 H Eosinophils # 0.03 L Glucose 121 H POC Glucose (mg/dL) 161 H - Diagnostic Findings Chest x-ray: report reviewed, image reviewed Additional studies: X-ray of the thoracic spine reviewed Assessment and Plan Plan: Assessment: #1. Acute exacerbation of COPD and there is possibly a component of chronic bronchial asthma exacerbation, chest x-ray showed no focal consolidation, no acute pulmonary disease. COVID-19 PCR was negative #2. Former smoker, quit smoking 2 months ago, carries [id number] smoking history #3. Chronic bronchial asthma, with history of multiple ALLERGIES, the patient is receiving ALLERGY shots from Dr. Giron. Has a history of ALLERGIES to different pollens, fresh cut grass, animal dander #4. Hypothyroidism #5. Seizure disorder #6. GERD/reflux #7. Depression Plan: Continue IV steroids, continue IV Solu-Medrol 60 mg every 6 hours Continue Symbicort, continue nebulized bronchodilators Chest x-ray has been reviewed showing no acute cardiopulmonary process Continue with antibiotics GI and DVT prophylaxis COVID-19 PCR was negative Patient has multiple ALLERGIES, and her current flareup may be possibly related to a combination of COPD and chronic bronchial asthma Patient will need outpatient follow-up with Dr. Dumas in the office and she will need outpatient PFT to determine severity of her COPD and bronchial asthma, and to see if there is any other treatment that she could benefit from for better control of her symptoms and flareups We'll continue to follow I performed a history & physical examination of the patient and discussed their management with my nurse practitioner, Della Milian. I reviewed the nurse practitioner's note and agree with the documented findings and plan of care. Lung sounds are positive for diffuse wheezes throughout the lung escobar. The findings and the impression was discussed with the patient. I attest to the documentation by the nurse practitioner. Time with Patient: Greater than 30
[2021-04-01] MEDS: methylPREDNISolone SOD SUCCI 125 MG/2 ML VIAL IV SCH ×2 (17:23→23:39)
--- NOTE | 2021-04-01 17:59 | XR ---
EXAMINATION TYPE: XR chest 2V DATE OF EXAM: 04/01/2021 COMPARISON: 03/31/2021 HISTORY: Short of breath TECHNIQUE: 2 views FINDINGS: Heart and mediastinum are normal. Lungs are clear. Diaphragm is normal. Bony thorax is inta ct. There is slight deformity of the left clavicle that could be an old fracture. IMPRESSION: No active cardiopulmonary disease. Normal heart. No change.
[2021-04-01] MEDS: ATORVASTATIN 20 MG TAB PO SCH (20:23)
[2021-04-01] MEDS: guaiFENesin 600 MG TABLET.ER PO SCH (20:23)
[2021-04-01] MEDS: ALPRAZolam 1 MG TAB PO SCH (20:23)
[2021-04-02] MEDS: IPRATROPIUM-ALBUTEROL 3 ML NEB INHALATION PRN (04:03)
[2021-04-02] MEDS: LEVOTHYROXINE 25 MCG TAB PO SCH (05:24)
[2021-04-02] MEDS: methylPREDNISolone SOD SUCCI 125 MG/2 ML VIAL IV SCH ×4 (05:24→23:17)
[2021-04-02] MEDS: ACETAMINOPHEN TAB 500 MG TAB PO PRN ×2 (07:24→14:31)
[2021-04-02] MEDS: PANTOPRAZOLE 40 MG TABLET PO SCH (07:24)
[2021-04-02] MEDS: IPRATROPIUM-ALBUTEROL 3 ML NEB INHALATION SCH ×4 (08:29→19:52)
[2021-04-02] MEDS: SYMBICORT 80-4.5 MCG INHALER INHALATION SCH ×2 (08:30→19:52)
[2021-04-02] MEDS: ENOXAPARIN 40 MG/0.4 ML SYRINGE SQ SCH (10:01)
[2021-04-02] MEDS: levETIRAcetam 500 MG TAB PO SCH (10:01)
[2021-04-02] MEDS: PARoxetine 20 MG TAB PO SCH (10:01)
[2021-04-02] MEDS: MULTIVITAMINS, THERA 1 EACH TAB PO SCH (10:01)
[2021-04-02] MEDS: guaiFENesin 600 MG TABLET.ER PO SCH ×2 (10:01→20:40)
[2021-04-02] MEDS: ESLICARBAZEPINE ACETATE 800 MG PO SCH (10:02)
[2021-04-02 10:25] LABS: Basophils % (A) 0 %; Eosinophils % (A) 0 %; HCT 33.5 % (34.0-46.0); HGB 11.1 gm/dL (11.4-16.0); Lymphocytes # (A) 0.9 k/uL (1.0-4.8); Lymphocytes % (A) 7 %; MCHC 33.1 g/dL (31.0-37.0); MCV 87.7 fL (80.0-100.0); Mean Platelet Volume 7.1; Monocytes # (A) 0.2 k/uL (0-1.0); Monocytes % (A) 1 %; Neutrophils # (A) 13.2 k/uL (1.3-7.7); Neutrophils % (A) 92 %; Platelet Count 345 k/uL (150-450); RBC 3.82 m/uL (3.80-5.40); RDW 13.7 % (11.5-15.5); WBC 14.4 k/uL (3.8-10.6)
[2021-04-02 10:38] LABS: ALT 25 U/L (4-34); AST 33 U/L (14-36); African American GFR (CKD) >90 (>60 ml/min/1.73 sqM); Albumin 3.7 g/dL (3.5-5.0); Albumin/Globulin Ratio 1.3; Alkaline Phosphatase 89 U/L (38-126); Anion Gap 7 mmol/L; Blood Urea Nitrogen 19 mg/dL (7-17); Calcium 9.3 mg/dL (8.4-10.2); Carbon Dioxide 24 mmol/L (22-30); Chloride 101 mmol/L (98-107); Globulin 2.9 g/dL; Glucose 269 mg/dL (74-99); Non-African American GFR(CKD) >90 (>60 ml/min/1.73 sqM); Potassium 4.2 mmol/L (3.5-5.1); Sodium 132 mmol/L (137-145); Total Bilirubin <0.1 mg/dL (0.2-1.3); Total Protein 6.6 g/dL (6.3-8.2)
--- NOTE | 2021-04-02 11:27 | P.PN ---
Subjective Progress Note Date: 04/02/21 60-year-old white female patient of Dr. Carter, with past medical history of chronic bronchial asthma, hypothyroidism, seizure disorder, depression, and former smoking history who presented to the emergency room for evaluation 2 week history of difficulty breathing. Patient has multiple ALLERGIES including to various pollens, fresh cut grass, animal dander to name a few. Patient states she has been getting ALLERGY shots from Dr. Lang, does not see a division controller. She does carry [id number] smoking history and she recently quit 2 months ago. She is not on oxygen on the regular basis. Patient states that she felt like she could not take a deep breath in. She was complaining of an occasional cough, but denied any feverm denied any chest pain, no nausea vomiting or diarrhea, no leg swelling. Chest x-ray in the emergency department showed no focal consolidation, no pneumothorax or pleural effusion. There was hyperaeration of lungs and flattening of the diaphragm suggestive of COPD. Patient is on Advair Diskus for maintenance inhaler, and DuoNeb nebulized treatments. She was tested for COVID-19 was found to be negative. EKG was unremarkable. Admission blood work showed CBC within normal limits, d-dimer was negative at 0.42, electrolytes and renal profile were within normal limits, LFTs were within normal limits, lactic acid 0.8, proBNP was 39, troponin was less than 0.012. Patient was started on IV Solu-Medrol, inhaled bronchodilators, Symbicort, Lovenox, and Protonix for GI and DVT prophylaxis. Today patient is seen on medical surgical floor, she is on 3 L of oxygen, pulse ox is 96%, hemodynamically she stable, she has been afebrile. The patient is seen today 04/02/2021 in follow-up on the regular medical floor. She is currently sitting up in bed. Awake and alert in no acute distress. She is breathing easier today compared to yesterday. Not quite back to her baseline. Still dyspneic with minimal exertion. Follow-up chest x-ray reveals no active pulmonary process. EKG reveals sinus rhythm with no ST wave abnormalities. Sputum culture is pending. White count 14.4. Hemoglobin 11.1. Sodium 132. Potassium 4.2. Bicarb 24. Creatinine 0.66. Glucose 269. Remains on DuoNeb inhalations, Symbicort, IV Solu-Medrol. Empiric antibiotics in the f orm of ceftriaxone and azithromycin. Objective - Vital Signs Vital signs: Vital Signs Temp 98.4 F 04/02/21 07:00 Pulse 84 04/02/21 08:40 Resp 18 04/02/21 08:40 BP 133/73 04/02/21 07:00 Pulse Ox 94 L 04/02/21 08:30 Intake & Output 04/01/21 04/02/21 04/02/21 18:59 06:59 18:59 Intake Total 480 118 Balance 480 118 Intake: Oral 480 118 Other: # Voids 2 4 - Exam GENERAL EXAM: Alert, active, pleasant 60-year-old female, on 2 L nasal cannula, comfortable in no apparent distress. HEAD: Normocephalic. EYES: Normal reaction of pupils, equal size. NOSE: Clear with pink turbinates. THROAT: No erythema or exudates. NECK: No masses, no JVD. CHEST: No chest wall deformity. LUNGS: Equal air entry with end expiratory wheeze, diminished CVS: S1 and S2 normal with no audible murmur, regular rhythm. ABDOMEN: No hepatosplenomegaly, normal bowel sounds, no guarding or rigidity. SPINE: No scoliosis or deformity SKIN: No rashes CENTRAL NERVOUS SYSTEM: No focal deficits, tone is normal in all 4 extremities. EXTREMITIES: There is no peripheral edema. No clubbing, no cyanosis. Peripheral pulses are intact. - Labs CBC & Chem 7: 04/02/21 09:46 04/02/21 09:46 Labs: Abnormal Lab Results - Last 24 Hours (Table) 04/01/21 04/02/21 04/02/21 Range/Units 04:51 09:46 09:46 WBC 14.4 H (3.8-10.6) k/uL Hgb 11.1 L (11.4-16.0) gm/dL Hct 33.5 L (34.0-46.0) % Neutrophils # 13.2 H (1.3-7.7) k/uL Lymphocytes # 0.9 L (1.0-4.8) k/uL Sodium 132 L (137-145) mmol/L BUN 19 H (7-17) mg/dL BUN/Creatinine Ratio 23.33 H (12.00-20.00) Ratio Glucose 155 H 269 H (70-110) mg/dL Total Bilirubin <0.1 L (0.2-1.3) mg/dL Albumin/Globulin Ratio 1.54 L (1.60-3.17) g/dL Microbiology - Last 24 Hours (Table) 04/01/21 Unknown Gram Stain - Preliminary Sputum Sputum Culture - Preliminary Assessment and Plan Assessment: 1 Acute exacerbation of COPD and there is possibly a component of chronic bronchial asthma exacerbation, chest x-ray showed no focal consolidation, no acute pulmonary disease. COVID-19 PCR was negative 2 Former smoker, quit smoking 2 months ago, carries [id number] smoking history 3 Chronic bronchial asthma, with history of multiple ALLERGIES, the patient is receiving ALLERGY shots from Dr. Giron. Has a history of ALLERGIES to different pollens, fresh cut grass, animal dander 4 Hypothyroidism 5 Seizure disorder 6 GERD/reflux 7 Depression 8 Steroid-induced hyperglycemia Plan: The patient was seen and evaluated by Dr. Dumas We'll start to taper the steroids Continue bronchodilators Sputum culture pending Continue empiric antibiotics Titrate the FiO2 as tolerated Follow-up in the office for further pulmonary evaluation post discharge I, the cosigning physician, performed a history & physical examination of the patient. Lungs sounds with bilateral end-expiratory wheeze, diminished. Maintaining good O2 saturations in the 90s on 2 L/m per nasal cannula. I discussed the assessment and plan of care with my nurse practitioner, Libia Dao. I attest to the above note as dictated by her.
--- NOTE | 2021-04-02 12:05 | P.PN ---
Subjective Progress Note Date: 04/02/21 Nay Goyal, is a 60-year-old female who presented to [facility] emergency room with a chief complaint of worsening shortness of breath She was evaluated in the emergency room, vital examination on presentation revealed a temperature of 98 pulse 101 respiration 32 blood pressure 149/80 pulse ox 92% on room air. White blood count was 9.9 hemoglobin 12.7 platelet count 363 INR 1.0 sodium 138 potassium 4.0 chloride 102 CO2 28 BUN 12 creatinine 0.87 Mackey virus PCR was negative. Chest x-ray done in the emergency room revealed evidence of hyperinflation of the lungs suggestive of COPD, otherwise no acute pulmonary disease. EKG done in the emergency room revealed normal sinus rhythm normal EKG. Patient was started on IV Solu-Medrol, inhaled bronchodilators, and was admitted to telemetry floor for further evaluation and treatment. Patient was evaluated on the telemetry floor she is complaining of shortness of breath cough and wheezing, she is also complaining of pain in the mid thoracic spine area, otherwise she denies any complaints On 04/01/2021 patient was seen and examined on the medical floor she is alert and oriented 3 in no apparent distress she is complaining of more cough and wheezing she is complaining of shortness of breath with any activity otherwise she denies any complaints, at this time will add IV antibiotics, add Mucinex and check sputum culture, consult pulmonary Dr. Dumas, recheck chest x-ray to rule out any evidence of pneumonia. Patient is not ready for discharge at this On 04/02/2021. Patient is alert and oriented 3. Patient still wheezing but reports that she feels improved. Patient remains on IV steroids and IV antibiotics. Pulmonary services are following. At this time patient denies chest pain. Patient denies nausea vomiting or diarrhea. Patient denies any urinary burning or frequency. Blood sugars elevated secondary to steroids. Sliding scale coverage added Objective - Vital Signs Vital signs: Vital Signs Temp 98.4 F 04/02/21 07:00 Pulse 80 04/02/21 11:52 Resp 18 04/02/21 11:52 BP 133/73 04/02/21 07:00 Pulse Ox 94 L 04/02/21 08:30 Intake & Output 04/01/21 04/02/21 04/02/21 18:59 06:59 18:59 Intake Total 480 118 Balance 480 118 Intake: Oral 480 118 Other: # Voids 2 4 - Exam In general patient is alert and oriented x-3 in no distress HEENT head normocephalic and atraumatic Neck is supple no JVD no goiter no lymphadenopathy no carotid bruit Chest examination reveals a few scattered crackles in both lung escobar with wheezing and prolonged expiratory phase Cardiac exam reveals regular heart sounds S1 and S2 no gallops no murmurs Abdomen is soft nontender no organomegaly with normal bowel sounds Extremity exam reveals no edema no cyanosis or clubbing Neurological examination reveals no gross focal deficits - Labs CBC & Chem 7: 04/02/21 09:46 04/02/21 09:46 Labs: Abnormal Lab Results - Last 24 Hours (Table) 04/01/21 04/02/21 04/02/21 Range/Units 04:51 09:46 09:46 WBC 14.4 H (3.8-10.6) k/uL Hgb 11.1 L (11.4-16.0) gm/dL Hct 33.5 L (34.0-46.0) % Neutrophils # 13.2 H (1.3-7.7) k/uL Lymphocytes # 0.9 L (1.0-4.8) k/uL Sodium 132 L (137-145) mmol/L BUN 19 H (7-17) mg/dL BUN/Creatinine Ratio 23.33 H (12.00-20.00) Ratio Glucose 155 H 269 H (70-110) mg/dL Total Bilirubin <0.1 L (0.2-1.3) mg/dL Albumin/Globulin Ratio 1.54 L (1.60-3.17) g/dL Microbiology - Last 24 Hours (Table) 04/01/21 Unknown Gram Stain - Preliminary Sputum Sputum Culture - Preliminary Assessment and Plan Plan: 1. Acute exacerbation of chronic obstructive pulmonary disease, on top of acute purulent bronchitis. Patient condition is worse today, at this time will add IV antibiotics add Mucinex. Per Pulmonary no acute pulmonary disease 2. Underlying history of hypertension 3. Underlying history of hyperlipidemia 4. Underlying history of hypothyroidism 5. Underlying history of seizure disorder 6. Underlying history of anxiety disorder 7. Pain in the midthoracic spine area Will check thoracic spine x-ray. Negative thoracic spine exam no fracture no change compared to old chest x-ray 8. Hyperglycemia secondary to steroids. Sliding scale coverage added For DVT prophylaxis subcu Lovenox For GI prophylaxis by mouth Protonix
[2021-04-02 12:22] LABS: Glucose,Whole Blood 211 mg/dL (75-99)
[2021-04-02] MEDS: INSULIN ASPART (NovoLOG) 100 UNIT/ML VIAL SQ SCH ×3 (14:30→20:40)
[2021-04-02] MEDS: AZITHROMYCIN 500 MG in SODIUM CHLORIDE 0.9% 250 ML IVPB SCH (17:08)
[2021-04-02 17:28] LABS: Glucose,Whole Blood 133 mg/dL (75-99)
[2021-04-02 20:15] LABS: Glucose,Whole Blood 157 mg/dL (75-99)
[2021-04-02] MEDS: ALPRAZolam 1 MG TAB PO SCH (20:39)
[2021-04-02] MEDS: ATORVASTATIN 20 MG TAB PO SCH (20:40)
[2021-04-02] MEDS ORDERED: MONTELUKAST 10 MG TAB PO SCH (21:00)
[2021-04-03] MEDS: ACETAMINOPHEN TAB 500 MG TAB PO PRN (05:07)
[2021-04-03] MEDS: methylPREDNISolone SOD SUCCI 125 MG/2 ML VIAL IV SCH ×2 (05:07→12:18)
[2021-04-03] MEDS: LEVOTHYROXINE 25 MCG TAB PO SCH (05:07)
[2021-04-03 07:04] LABS: Glucose,Whole Blood 147 mg/dL (75-99)
[2021-04-03] MEDS: IPRATROPIUM-ALBUTEROL 3 ML NEB INHALATION SCH ×2 (07:36→11:18)
[2021-04-03] MEDS: SYMBICORT 80-4.5 MCG INHALER INHALATION SCH (07:36)
[2021-04-03 07:38] VITALS: BP 128/74; RESP 18; TEMP 97.6
[2021-04-03] MEDS: PANTOPRAZOLE 40 MG TABLET PO SCH (07:50)
[2021-04-03] MEDS: INSULIN ASPART (NovoLOG) 100 UNIT/ML VIAL SQ SCH ×2 (08:14→13:11)
[2021-04-03] MEDS: levETIRAcetam 500 MG TAB PO SCH (08:55)
[2021-04-03] MEDS: guaiFENesin 600 MG TABLET.ER PO SCH (08:55)
[2021-04-03] MEDS: MULTIVITAMINS, THERA 1 EACH TAB PO SCH (08:55)
[2021-04-03] MEDS: ENOXAPARIN 40 MG/0.4 ML SYRINGE SQ SCH (08:56)
[2021-04-03] MEDS: ESLICARBAZEPINE ACETATE 800 MG PO SCH (08:57)
[2021-04-03] MEDS: PARoxetine 20 MG TAB PO SCH (08:57)
[2021-04-03 09:49] LABS: Basophils # (A) 0.01 X 10*3/uL (0.00-0.10); Basophils % (A) 0.1 %; Eosinophils # (A) 0 X 10*3/uL (0.04-0.35); Eosinophils % (A) 0 %; HCT 35.4 % (37.2-46.3); HGB 11.4 g/dL (12.0-15.0); Lymphocytes # (A) 1.18 X 10*3/uL (0.90-5.00); Lymphocytes % (A) 7.3 %; MCH 28.6 pg (27.0-32.0); MCHC 32.2 g/dL (32.0-37.0); MCV 88.9 fL (80.0-97.0); Monocytes # (A) 0.61 X 10*3/uL (0.20-1.00); Monocytes % (A) 3.8 %; Neutrophils # (A) 14.19 X 10*3/uL (1.80-7.70); Neutrophils % (A) 88.3 %; Platelet Count 371 X 10*3/uL (140-440); RBC 3.98 X 10*6/uL (4.10-5.20); RDW 14.1 % (11.5-14.5); WBC 16.07 X 10*3/uL (4.50-10.00)
--- NOTE | 2021-04-03 11:13 | P.DS ---
Providers Date of admission: 04/02/21 10:21 Expected date of discharge: 04/03/21 Attending physician: Koffi Carter Consults: 04/01/21 14:19 Consult Physician Routine Consulting Provider: Gil Dumas Consult Reason/Comments: Shortness of breath Do you want consulting provider notified?: Yes Primary care physician: Koffi Carter [facility] Course: Discharge diagnosis 1. Acute exacerbation of chronic obstructive pulmonary disease, on top of acute purulent bronchitis. Patient condition is worse today, at this time will add IV antibiotics add Mucinex. Per Pulmonary no acute pulmonary disease. Cleared for discharge from pulmonary standpoint will be discharged on prednisone taper and follow-up with pulmonary services outpatient. Patient will also be DC'd on Ceftin for 5 days 2. Underlying history of hypertension 3. Underlying history of hyperlipidemia 4. Underlying history of hypothyroidism 5. Underlying history of seizure disorder 6. Underlying history of anxiety disorder 7. Pain in the midthoracic spine area Will check thoracic spine x-ray. Negative thoracic spine exam no fracture no change compared to old chest x-ray 8. Hyperglycemia secondary to steroids. Sliding scale coverage added Hospital course Nay Goyal, is a 60-year-old female who presented to [facility] emergency room with a chief complaint of worsening shortness of breath She was evaluated in the emergency room, vital examination on presentation revealed a temperature of 98 pulse 101 respiration 32 blood pressure 149/80 pulse ox 92% on room air. White blood count was 9.9 hemoglobin 12.7 platelet count 363 INR 1.0 sodium 138 potassium 4.0 chloride 102 CO2 28 BUN 12 creatinine 0.87 Mackey virus PCR was negative. Chest x-ray done in the emergency room revealed evidence of hyperinflation of the lungs suggestive of COPD, otherwise no acute pulmonary disease. EKG done in the emergency room revealed normal sinus rhythm normal EKG. Patient was started on IV Solu-Medrol, inhaled bronchodilators, and was admitted to telemetry floor for further evaluation and treatment. Patient was evaluated on the telemetry floor she is complaining of shortness of breath cough and wheezing, she is also complaining of pain in the mid thoracic spine area, otherwise she denies any complaints On 04/01/2021 patient was seen and examined on the medical floor she is alert and oriented 3 in no apparent distress she is complaining of more cough and wheezing she is complaining of shortness of breath with any activity otherwise she denies any complaints, at this time will add IV antibiotics, add Mucinex and check sputum culture, consult pulmonary Dr. Dumas, recheck chest x-ray to rule out any evidence of pneumonia. Patient is not ready for discharge at this On 04/02/2021. Patient is alert and oriented 3. Patient still wheezing but reports that she feels improved. Patient remains on IV steroids and IV antib iotics. Pulmonary services are following. At this time patient denies chest pain. Patient denies nausea vomiting or diarrhea. Patient denies any urinary burning or frequency. Blood sugars elevated secondary to steroids. Sliding scale coverage added On 04/03/2021 patient is alert and oriented 3. Patient reports significant improvement with shortness of breath and coughing. Patient cleared for discharge from pulmonary standpoint. Patient will be DC'd on prednisone taper and Ceftin. Patient to follow-up with home services outpatient. Home O2 test to be completed prior to discharge. At this time patient denies chest pain. Patient denies nausea vomiting or diarrhea. Patient denies any urinary burning or frequency Patient Condition at Discharge: Stable Plan - Discharge Summary Discharge Rx Participant: No New Discharge Prescriptions: New predniSONE 10 mg PO DIRECTED 12 Days #30 tab Montelukast [Singulair] 10 mg PO HS 30 Days #30 tab Continue Omeprazole Magnesium [PriLOSEC OTC] 20 mg PO DAILY Multivitamins, Thera [Multivitamin (formulary)] 1 tab PO DAILY levETIRAcetam [Keppra Xr] 1,000 mg PO DAILY ALPRAZolam [Xanax] 1 mg PO HS EPINEPHrine [Primatene Mist] 1 puff INHALATION RT-QID PRN PRN Reason: Shortness Of Breath Simvastatin [Zocor] 40 mg PO DAILY Migraine Relief(Otc) 25mg 25 mg PO DAILY PRN PRN Reason: Migraine Headache PARoxetine HCL [Paxil] 40 mg PO DAILY levETIRAcetam [Keppra Xr] 1,500 mg PO HS Eslicarbazepine Acetate [Aptiom] 800 mg PO DAILY Ipratropium-Albuterol Nebulize [Duoneb 0.5 mg-3 mg/3 ml Soln] 3 ml INHALATION RT-QID PRN PRN Reason: Shortness Of Breath No Action Levothyroxine Sodium [Synthroid] 25 mcg PO DAILY Fluticasone/Salmeterol [Advair 250-50 Diskus] 1 puff INHALATION RT-BID Discharge Medication List Fluticasone/Salmeterol [Advair 250-50 Diskus] 1 puff INHALATION RT-BID 02/14/19 [History] Levothyroxine Sodium [Synthroid] 25 mcg PO DAILY 02/14/19 [History] ALPRAZolam [Xanax] 1 mg PO HS 03/31/21 [History] EPINEPHrine [Primatene Mist] 1 puff INHALATION RT-QID PRN 03/31/21 [History] Eslicarbazepine Acetate [Aptiom] 800 mg PO DAILY 03/31/21 [History] Ipratropium-Albuterol Nebulize [Duoneb 0.5 mg-3 mg/3 ml Soln] 3 ml INHALATION RT-QID PRN 03/31/21 [History] Migraine Relief(Otc) 25mg 25 mg PO DAILY PRN 03/31/21 [History] Multivitamins, Thera [Multivitamin (formulary)] 1 tab PO DAILY 03/31/21 [History] Omeprazole Magnesium [PriLOSEC OTC] 20 mg PO DAILY 03/31/21 [History] PARoxetine HCL [Paxil] 40 mg PO DAILY 03/31/21 [History] Simvastatin [Zocor] 40 mg PO DAILY 03/31/21 [History] levETIRAcetam [Keppra Xr] 1,000 mg PO DAILY 03/31/21 [History] levETIRAcetam [Keppra Xr] 1,500 mg PO HS 03/31/21 [History] Montelukast [Singulair] 10 mg PO HS 30 Days #30 tab 04/03/21 [Rx] predniSONE 10 mg PO DIRECTED 12 Days #30 tab 04/03/21 [Rx] Follow up Appointment(s)/Referral(s): Koffi Carter MD [Primary Care Provider] - 1-2 days Gil Dumas MD [STAFF PHYSICIAN] - 1 Week Discharge Disposition: HOME SELF-CARE
[2021-04-03 11:30] VITALS: PULSE 80
[2021-04-03 11:53] LABS: Glucose,Whole Blood 140 mg/dL (75-99)
[2021-04-03 12:02] LABS: African American GFR (CKD) 109.9 (60.0-200.0); Albumin/Globulin Ratio 1.54 (1.60-3.17); Anion Gap 10.2 mmol/L (4.00-12.00); BUN/Creat Ratio 28.57 Ratio (12.00-20.00); Calcium 9.2 mg/dL (8.7-10.3); Carbon Dioxide 23.8 mmol/L (21.6-31.8); Globulin 2.6 g/dL (1.6-3.3); Non-African American GFR(CKD) 94.8 (60.0-200.0); Potassium 4.6 mmol/L (3.5-5.5); Total Bilirubin 0.2 mg/dL (0.2-1.2); Total Protein 6.6 g/dL (6.2-8.2)
--- NOTE | 2021-04-03 12:47 | P.PN ---
Subjective Progress Note Date: 04/03/21 60-year-old white female patient of Dr. Carter, with past medical history of chronic bronchial asthma, hypothyroidism, seizure disorder, depression, and former smoking history who presented to the emergency room for evaluation 2 week history of difficulty breathing. Patient has multiple ALLERGIES including to various pollens, fresh cut grass, animal dander to name a few. Patient states she has been getting ALLERGY shots from Dr. Lang, does not see a advisory software engineer. She does carry [id number] smoking history and she recently quit 2 months ago. She is not on oxygen on the regular basis. Patient states that she felt like she could not take a deep breath in. She was complaining of an occasional cough, but denied any feverm denied any chest pain, no nausea vomiting or diarrhea, no leg swelling. Chest x-ray in the emergency department showed no focal consolidation, no pneumothorax or pleural effusion. There was hyperaeration of lungs and flattening of the diaphragm suggestive of COPD. Patient is on Advair Diskus for maintenance inhaler, and DuoNeb nebulized treatments. She was tested for COVID-19 was found to be negative. EKG was unremarkable. Admission blood work showed CBC within normal limits, d-dimer was negative at 0.42, electrolytes and renal profile were within normal limits, LFTs were within normal limits, lactic acid 0.8, proBNP was 39, troponin was less than 0.012. Patient was started on IV Solu-Medrol, inhaled bronchodilators, Symbicort, Lovenox, and Protonix for GI and DVT prophylaxis. Today patient is seen on medical surgical floor, she is on 3 L of oxygen, pulse ox is 96%, hemodynamically she stable, she has been afebrile. The patient is seen today 04/02/2021 in follow-up on the regular medical floor. She is currently sitting up in bed. Awake and alert in no acute distress. She is breathing easier today compared to yesterday. Not quite back to her baseline. Still dyspneic with minimal exertion. Follow-up chest x-ray reveals no active pulmonary process. EKG reveals sinus rhythm with no ST wave abnormalities. Sputum culture is pending. White count 14.4. Hemoglobin 11.1. Sodium 132. Potassium 4.2. Bicarb 24. Creatinine 0.66. Glucose 269. Remains on DuoNeb inhalations, Symbicort, IV Solu-Medrol. Empiric antibiotics in the f orm of ceftriaxone and azithromycin. The patient is seen today 04/03/2021 in follow-up on the regular medical floor. She is awake and alert in no acute distress. Feeling back to her baseline. Up ambulating in the room without any significant shortness of breath. She was checked for possible home oxygen and maintained O2 saturations at 92% and higher with exercise. White count 16.0. Hemoglobin 11.4. Sodium 134. Potassium 4.6. Creatinine 0.7. She remains on Symbicort, DuoNeb inhalations, IV Solu-Medrol. Antibiotics in the form of ceftriaxone and azithromycin. Objective - Vital Signs Vital signs: Vital Signs Temp 97.6 F 04/03/21 07:00 Pulse 80 04/03/21 11:29 Resp 18 04/03/21 11:29 BP 128/74 04/03/21 07:00 Pulse Ox 97 04/03/21 11:48 Intake & Output 04/02/21 04/03/21 04/03/21 18:59 06:59 18:59 Intake Total 236 Balance 236 Intake: Oral 236 Other: Voiding Method Toilet Toilet # Voids 1 1 # Bowel Movements 1 - Exam GENERAL EXAM: Alert, active, pleasant 60-year-old female, on room air, comfortable in no apparent distress. HEAD: Normocephalic. EYES: Normal reaction of pupils, equal size. NOSE: Clear with pink turbinates. THROAT: No erythema or exudates. NECK: No masses, no JVD. CHEST: No chest wall deformity. LUNGS: Equal air entry with end expiratory wheeze, diminished CVS: S1 and S2 normal with no audible murmur, regular rhythm. ABDOMEN: No hepatosplenomegaly, normal bowel sounds, no guarding or rigidity. SPINE: No scoliosis or deformity SKIN: No rashes CENTRAL NERVOUS SYSTEM: No focal deficits, tone is normal in all 4 extremities. EXTREMITIES: There is no peripheral edema. No clubbing, no cyanosis. Peripheral pulses are intact. - Labs CBC & Chem 7: 04/03/21 05:09 04/03/21 05:09 Labs: Abnormal Lab Results - Last 24 Hours (Table) 04/02/21 04/02/21 04/03/21 Range/Units 17:27 20:14 05:09 WBC 16.07 H (4.50-10.00) X 10*3/uL RBC 3.98 L (4.10-5.20) X 10*6/uL Hgb 11.4 L (12.0-15.0) g/dL Hct 35.4 L (37.2-46.3) % Immature Gran # 0.08 H (0.00-0.04) X 10*3/uL Neutrophils # 14.19 H (1.80-7.70) X 10*3/uL Eosinophils # 0 L (0.04-0.35) X 10*3/uL Sodium (135-145) mmol/L BUN/Creatinine Ratio (12.00-20.00) Ratio Glucose (70-110) mg/dL POC Glucose (mg/dL) 133 H 157 H (75-99) mg/dL Albumin/Globulin Ratio (1.60-3.17) g/dL 04/03/21 04/03/21 04/03/21 Range/Units 05:09 07:03 11:51 WBC (4.50-10.00) X 10*3/uL RBC (4.10-5.20) X 10*6/uL Hgb (12.0-15.0) g/dL Hct (37.2-46.3) % Immature Gran # (0.00-0.04) X 10*3/uL Neutrophils # (1.80-7.70) X 10*3/uL Eosinophils # (0.04-0.35) X 10*3/uL Sodium 134 L (135-145) mmol/L BUN/Creatinine Ratio 28.57 H (12.00-20.00) Ratio Glucose 143 H (70-110) mg/dL POC Glucose (mg/dL) 147 H 140 H (75-99) mg/dL Albumin/Globulin Ratio 1.54 L (1.60-3.17) g/dL Assessment and Plan Assessment: 1 Acute exacerbation of COPD and there is possibly a component of chronic bronchial asthma exacerbation, chest x-ray showed no focal consolidation, no acute pulmonary disease. COVID-19 PCR was negative 2 Former smoker, quit smoking 2 months ago, carries [id number] smoking history 3 Chronic bronchial asthma, with history of multiple ALLERGIES, the patient is receiving ALLERGY shots from Dr. Giron. Has a history of ALLERGIES to different pollens, fresh cut grass, animal dander 4 Hypothyroidism 5 Seizure disorder 6 GERD/reflux 7 Depression 8 Steroid-induced hyperglycemia Plan: The patient was seen and evaluated by Dr. Dumas Cleared for discharge from the pulmonary standpoint Did not qualify for home oxygen Complete a prednisone taper Continue her home Jessica Flores's Follow-up in the office for further pulmonary evaluation and treatment plan I, the cosigning physician, performed a history & physical examination of the patient. Lungs sounds with bilateral end-expiratory wheeze, diminished. Maintaining good O2 saturations in the 90s on room air. I discussed the assessment and plan of care with my nurse practitioner, Libia Dao. I attest to the above note as dictated by her.
[2021-04-03] MEDS ORDERED: AZITHROMYCIN 500 MG TAB PO SCH (16:00)
== END 2021-04-03 13:39 | disposition home or self-care (01) | DRG 192 ==
LOC: EC 06:17 → 6NMEDSUR 10:13 → OBSVTOIN 04-02 10:21
PROVIDERS: ADMIT Internal Medicine; ATTEND Internal Medicine
DX: J44.1 Chronic obstructive pulmonary disease with (acute) exacerbation (principal); J44.0 Chronic obstructive pulmonary disease with (acute) lower respiratory infection; J20.9 Acute bronchitis, unspecified; E03.9 Hypothyroidism, unspecified; E78.5 Hyperlipidemia, unspecified; F32.9 Major depressive disorder, single episode, unspecified; G40.909 Epilepsy, unspecified, not intractable, without status epilepticus; G43.909 Migraine, unspecified, not intractable, without status migrainosus; I10 Essential (primary) hypertension; K21.9 Gastro-esophageal reflux disease without esophagitis; T38.0X5A Adverse effect of glucocorticoids and synthetic analogues, initial encounter; Z20.822 Contact with and (suspected) exposure to COVID-19; R73.9 Hyperglycemia, unspecified; Z79.890 Hormone replacement therapy; Z79.899 Other long term (current) drug therapy; Z82.0 Family history of epilepsy and other diseases of the nervous system; Z82.5 Family history of asthma and other chronic lower respiratory diseases; Z87.891 Personal history of nicotine dependence; Z90.710 Acquired absence of both cervix and uterus; Z80.3 Family history of malignant neoplasm of breast
CPT/HCPCS: 36415; 71046; 72072; 80053; 83605; 83735; 83880; 84484; 85025; 85379; 85610; 85730; 87070; 87205; 87635; 93005; 94640; 94760; 96374; 99285

== ENCOUNTER → 2021-09-11 | Outpatient (CLI) | payer MEDICARE | END | disposition home or self-care (01) | LOC: LABWHC1 09:46 | PROVIDERS: ATTEND Psychiatry & Neurology Neurology | DX: G40.209 Localization-related (focal) (partial) symptomatic epilepsy and epileptic syndromes with complex partial seizures, not intractable, without status epilepticus (principal) | CPT/HCPCS: 36415; 80177 ==

== ENCOUNTER → 2022-01-06 | Outpatient (CLI) | payer MEDICARE ==
[2022-01-06 16:32] LABS: Sodium 133 mmol/L (135-145)
[2022-01-06 18:08] LABS: Carbamazepine (Tegretol) <2.0 ug/mL (4.0-12.0)
== END | disposition home or self-care (01) ==
LOC: LABWHC1 08:28
PROVIDERS: ATTEND Psychiatry & Neurology Neurology
DX: G40.209 Localization-related (focal) (partial) symptomatic epilepsy and epileptic syndromes with complex partial seizures, not intractable, without status epilepticus (principal)
CPT/HCPCS: 36415; 80156; 84295

== ENCOUNTER 2022-02-11 12:29 | Emergency (ER) | payer MEDICARE ==
[2022-02-11 12:39] VITALS: TEMP 97
[2022-02-11] MEDS ORDERED: IPRATROPIUM-ALBUTEROL 3 ML NEB INHALATION STA (12:48)
[2022-02-11] MEDS ORDERED: methylPREDNISolone SOD SUCCI 125 MG/2 ML VIAL IV STA (12:48)
[2022-02-11] MEDS ORDERED: MAGNESIUM SULFATE-D5W PMX 1 GM in DEXTROSE/WATER 1 100ML.BAG IVPB STA (12:48)
--- NOTE | 2022-02-11 13:12 | ED ---
SOB HPI - General Chief Complaint: Shortness of Breath Stated Complaint: SOB Time Seen by Provider: 02/11/22 12:42 Source: patient, family Mode of arrival: wheelchair - History of Present Illness Initial Comments: 61-year-old female past medical history of asthma presents emergency Department with shortness of breath. Patient arrives in moderate respiratory distress. Reports that she was recently on steroids and antibiotics to Dr. Carter's office. She took them as directed. States that she ran out 3 days ago and immediately became more short of breath. She has been using her albuterol breathing treatments at home without any improvement. She admits to nonproductive cough. No fevers. No sick contacts. Denies any chest pain or cardiac history. No other alleviating, precipitating or modifying factors - Related Data Home Medications Medication Instructions Recorded Confirmed Levothyroxine Sodium [Synthroid] 25 mcg PO DAILY 02/14/19 02/11/22 ALPRAZolam [Xanax] 1 mg PO HS 03/31/21 02/11/22 Eslicarbazepine Acetate [Aptiom] 800 mg PO DAILY 03/31/21 02/11/22 Ipratropium-Albuterol Nebulize 3 ml INHALATION RT-QID PRN 03/31/21 02/11/22 [Duoneb 0.5 mg-3 mg/3 ml Soln] Migraine Relief(Otc) 25mg 25 mg PO DAILY PRN 03/31/21 02/11/22 Multivitamins, Thera [Multivitamin 1 tab PO DAILY 03/31/21 02/11/22 (formulary)] Omeprazole Magnesium [PriLOSEC OTC] 20 mg PO DAILY 03/31/21 02/11/22 PARoxetine HCL [Paxil] 40 mg PO DAILY 03/31/21 02/11/22 Simvastatin [Zocor] 40 mg PO DAILY 03/31/21 02/11/22 levETIRAcetam [Keppra Xr] 1,000 mg PO DAILY 03/31/21 02/11/22 levETIRAcetam [Keppra Xr] 1,500 mg PO HS 03/31/21 02/11/22 Albuterol Inhaler [Ventolin Hfa 2 puff INHALATION RT-Q4H PRN 02/11/22 02/11/22 Inhaler] Eslicarbazepine Acetate [Aptiom] 200 mg PO DAILY 02/11/22 02/11/22 Fluticasone/Salmeterol [Advair 1 puff INHALATION RT-BID 02/11/22 02/11/22 500-50 Diskus] Previous Rx's Medication Instructions Recorded Montelukast [Singulair] 10 mg PO HS 30 Days #30 tab 04/03/21 Ipratropium Nebulized [Atrovent 0.5 mg INHALATION Q6HR #300 ml 02/11/22 Nebulized 0.2 MG/ML] predniSONE [Deltasone] 20 mg PO BID #10 tab 02/11/22 Allergies Allergy/AdvReac Type Severity Reaction Status Date / Time No Known Allergies Allergy Verified 02/11/22 13:44 Review of Systems ROS Statement: Those systems with pertinent positive or pertinent negative responses have been documented in the HPI. ROS Other: All systems not noted in ROS Statement are negative. Past Medical History Past Medical History: Asthma, GERD/Reflux, Seizure Disorder, Thyroid Disorder Additional Past Medical History / Comment(s): Epilepsy for 17 years History of Any Multi-Drug Resistant Organisms: None Reported Past Surgical History: Hysterectomy Additional Past Surgical History / Comment(s): Colonoscopy Past Anesthesia/Blood Transfusion Reactions: No Reported Reaction Past Psychological History: Depression Smoking Status: Former smoker Past Alcohol Use History: None Reported Past Drug Use History: None Reported - Past Family History Mother Family Medical History: Cancer Additional Family Medical History / Comment(s): Breast Father Family Medical History: Asthma, Seizure Disorder Additional Family Medical History / Comment(s): Severe allergies. General Exam General appearance: alert, in no apparent distress, anxious Head exam: Present: atraumatic, normocephalic, normal inspection Eye exam: Present: normal appearance, PERRL, EOMI. Absent: scleral icterus, conjunctival injection, periorbital swelling ENT exam: Present: normal exam, mucous membranes moist Neck exam: Present: normal inspection. Absent: tenderness, meningismus, lymphadenopathy Respiratory exam: Present: normal lung sounds bilaterally, wheezes, accessory muscle use, decreased breath sounds. Absent: respiratory distress, rales, rhonchi, stridor Cardiovascular Exam: Present: regular rate, normal rhythm, normal heart sounds. Absent: systolic murmur, diastolic murmur, rubs, gallop, clicks GI/Abdominal exam: Present: soft, normal bowel sounds. Absent: distended, tenderness, guarding, rebound, rigid Extremities exam: Present: normal inspection, full ROM, normal capillary refill. Absent: tenderness, pedal edema, joint swelling, calf tenderness Back exam: Present: normal inspection Neurological exam: Present: alert, oriented X3, CN II-XII intact Psychiatric exam: Present: normal affect, normal mood Skin exam: Present: warm, dry, intact, normal color. Absent: rash Course Vital Signs 02/11/22 02/11/22 02/11/22 12:34 13:14 13:18 Temperature 97 F L Pulse Rate 60 77 Respiratory 24 30 H 30 H Rate Blood Pressure 104/60 117/76 O2 Sat by Pulse 95 97 Oximetry 02/11/22 02/11/22 02/11/22 14:33 14:46 14:56 Temperature Pulse Rate 87 89 78 Respiratory 18 Rate Blood Pressure 115/74 O2 Sat by Pulse 95 Oximetry Medical Decision Making - Medical Decision Making Upon arrival patient was placed into room 4. A thorough history and physical exam was performed. IV access established laboratory studies were conducted. Patient does go for a chest x-ray which demonstrates no acute cardio: Reprocessed. Patient is given a DuoNeb breathing treatment, 125 Solu-Medrol and 1 g of magnesium. She is reevaluated and resting comfortably in the room asleep. Patient requesting discharge home at this time. Will be placed on 5 days worth of prednisone. Additionally we'll add ipratropium to the patient's breathing treatments. Follow up with Dr. Carter 2-4 days. Return for any new or worsening symptoms. Patient discharged in stable condition - Lab Data Result diagrams: 02/11/22 13:05 02/11/22 13:05 Lab Results 02/11/22 02/11/22 02/11/22 Range/Units 13:05 13:05 13:05 WBC 12.0 H (3.8-10.6) k/uL RBC 4.51 (3.80-5.40) m/uL Hgb 13.0 (11.4-16.0) gm/dL Hct 40.2 (34.0-46.0) % MCV 89.3 (80.0-100.0) fL MCH 28.9 (25.0-35.0) pg MCHC 32.4 (31.0-37.0) g/dL RDW 13.6 (11.5-15.5) % Plt Count 356 (150-450) k/uL MPV 7.1 Neutrophils % 61 % Lymphocytes % 22 % Monocytes % 6 % Eosinophils % 8 % Basophils % 1 % Neutrophils # 7.4 (1.3-7.7) k/uL Lymphocytes # 2.6 (1.0-4.8) k/uL Monocytes # 0.8 (0-1.0) k/uL Eosinophils # 1.0 H (0-0.7) k/uL Basophils # 0.1 (0-0.2) k/uL PT 10.6 (9.0-12.0) sec INR 1.0 (<1.2) APTT 24.0 (22.0-30.0) sec Sodium 140 (137-145) mmol/L Potassium 4.3 (3.5-5.1) mmol/L Chloride 105 (98-107) mmol/L Carbon Dioxide 28 (22-30) mmol/L Anion Gap 7 mmol/L BUN 12 (7-17) mg/dL Creatinine 0.81 (0.52-1.04) mg/dL Est GFR (CKD-EPI)AfAm >90 (>60 ml/min/1.73 sqM) Est GFR (CKD-EPI)NonAf 80 (>60 ml/min/1.73 sqM) Glucose 117 H (74-99) mg/dL Plasma Lactic Acid Yanick (0.7-2.0) mmol/L Calcium 9.4 (8.4-10.2) mg/dL Total Bilirubin 0.3 (0.2-1.3) mg/dL AST 22 (14-36) U/L ALT 27 (4-34) U/L Alkaline Phosphatase 103 (38-126) U/L Troponin I (0.000-0.034) ng/mL NT-Pro-B Natriuret Pep pg/mL Total Protein 6.9 (6.3-8.2) g/dL Albumin 3.8 (3.5-5.0) g/dL 02/11/22 02/11/22 02/11/22 Range/Units 13:05 13:05 13:05 WBC (3.8-10.6) k/uL RBC (3.80-5.40) m/uL Hgb (11.4-16.0) gm/dL Hct (34.0-46.0) % MCV (80.0-100.0) fL MCH (25.0-35.0) pg MCHC (31.0-37.0) g/dL RDW (11.5-15.5) % Plt Count (150-450) k/uL MPV Neutrophils % % Lymphocytes % % Monocytes % % Eosinophils % % Basophils % % Neutrophils # (1.3-7.7) k/uL Lymphocytes # (1.0-4.8) k/uL Monocytes # (0-1.0) k/uL Eosinophils # (0-0.7) k/uL Basophils # (0-0.2) k/uL PT (9.0-12.0) sec INR (<1.2) APTT (22.0-30.0) sec Sodium (137-145) mmol/L Potassium (3.5-5.1) mmol/L Chloride (98-107) mmol/L Carbon Dioxide (22-30) mmol/L Anion Gap mmol/L BUN (7-17) mg/dL Creatinine (0.52-1.04) mg/dL Est GFR (CKD-EPI)AfAm (>60 ml/min/1.73 sqM) Est GFR (CKD-EPI)NonAf (>60 ml/min/1.73 sqM) Glucose (74-99) mg/dL Plasma Lactic Acid Yanick 1.3 (0.7-2.0) mmol/L Calcium (8.4-10.2) mg/dL Total Bilirubin (0.2-1.3) mg/dL AST (14-36) U/L ALT (4-34) U/L Alkaline Phosphatase (38-126) U/L Troponin I <0.012 (0.000-0.034) ng/mL NT-Pro-B Natriuret Pep 67 pg/mL Total Protein (6.3-8.2) g/dL Albumin (3.5-5.0) g/dL - EKG Data EKG Comments: EKG demonstrates sinus rhythm with a rate of 82.. OR interval 141. QRS 82. QTC of 41. No acute ST segment elevations or depressions concerning for ischemic changes Disposition Clinical Impression: COPD exacerbation Disposition: HOME SELF-CARE Condition: Stable Instructions (If sedation given, give patient instructions): COPD (Chronic Obstructive Pulmonary Disease) (ED) Additional Instructions: Take the steroids as directed starting tomorrow and follow-up with your primary care doctor in 2-4 days. Use your breathing treatments every 4 hours. Mix the albuterol and the ipratropium. Return for any new or worsening symptoms. Prescriptions: Ipratropium Nebulized [Atrovent Nebulized 0.2 MG/ML] 0.5 mg INHALATION Q6HR #300 ml predniSONE [Deltasone] 20 mg PO BID #10 tab Is patient prescribed a controlled substance at d/c from ED?: No Referrals: Koffi Carter MD [Primary Care Provider] - 1-2 days Gil Dumas MD [STAFF PHYSICIAN] - 1-2 days Time of Disposition: 14:51
[2022-02-11 13:16] LABS: Basophils # (A) 0.1 k/uL (0-0.2); Basophils % (A) 1 %; Eosinophils % (A) 8 %; HCT 40.2 % (34.0-46.0); Lymphocytes # (A) 2.6 k/uL (1.0-4.8); Lymphocytes % (A) 22 %; MCH 28.9 pg (25.0-35.0); MCHC 32.4 g/dL (31.0-37.0); MCV 89.3 fL (80.0-100.0); Mean Platelet Volume 7.1; Monocytes # (A) 0.8 k/uL (0-1.0); Monocytes % (A) 6 %; Neutrophils # (A) 7.4 k/uL (1.3-7.7); Neutrophils % (A) 61 %; Platelet Count 356 k/uL (150-450); RBC 4.51 m/uL (3.80-5.40); RDW 13.6 % (11.5-15.5)
--- NOTE | 2022-02-11 13:23 | XR ---
EXAMINATION TYPE: XR chest 2V DATE OF EXAM: 02/11/2022 COMPARISON: 04/01/2021 INDICATION: Difficulty breathing TECHNIQUE: Frontal and lateral views of the chest are obtained. FINDINGS: The heart size is normal. The pulmonary vasculature is normal. The lungs are clear. IMPRESSION: 1. No acute pulmonary process.
[2022-02-11 13:26] LABS: Prothrombin Time 10.6 sec (9.0-12.0)
[2022-02-11 13:32] LABS: ALT 27 U/L (4-34); AST 22 U/L (14-36); African American GFR (CKD) >90 (>60 ml/min/1.73 sqM); Albumin 3.8 g/dL (3.5-5.0); Alkaline Phosphatase 103 U/L (38-126); Anion Gap 7 mmol/L; Blood Urea Nitrogen 12 mg/dL (7-17); Calcium 9.4 mg/dL (8.4-10.2); Carbon Dioxide 28 mmol/L (22-30); Chloride 105 mmol/L (98-107); Glucose 117 mg/dL (74-99); Non-African American GFR(CKD) 80 (>60 ml/min/1.73 sqM); Potassium 4.3 mmol/L (3.5-5.1); Sodium 140 mmol/L (137-145); Total Bilirubin 0.3 mg/dL (0.2-1.3); Total Protein 6.9 g/dL (6.3-8.2)
[2022-02-11 15:01] VITALS: BP 115/74; PULSE 78; RESP 18
== END 2022-02-11 15:00 | disposition home or self-care (01) ==
LOC: EC 12:29
DX: J44.1 Chronic obstructive pulmonary disease with (acute) exacerbation (principal); J45.909 Unspecified asthma, uncomplicated; E07.9 Disorder of thyroid, unspecified; K21.9 Gastro-esophageal reflux disease without esophagitis; Z79.1 Long term (current) use of non-steroidal anti-inflammatories (NSAID); Z79.899 Other long term (current) drug therapy; Z87.891 Personal history of nicotine dependence
CPT/HCPCS: 36415; 94640; 93005; 83880; 80053; 83605; 84484; 85025; 85610; 85730; 71046; 99285; 96365; 96375; J2930; J3475; 96360

== ENCOUNTER → 2022-09-04 | Outpatient (CLI) | payer OTHER, MEDICARE ==
--- NOTE | 2022-09-04 11:46 | XR ---
EXAMINATION TYPE: XR chest 2V DATE OF EXAM: 09/04/2022 COMPARISON: 02/11/2022 HISTORY: Shortness of breath TECHNIQUE: Frontal and lateral views of the chest are obtained. FINDINGS: Scattered senescent parenchymal changes noted. Hyperinflation compatible with COPD. No evidence for infiltrate. No evidence for atelectasis. Heart size is stable. Mediastinal structures are stable and grossly unremarkable. No evidence for hilar prominence. Degenerative changes dorsal spine. IMPRESSION: 1. No evidence for acute pulmonary disease.
== END | disposition home or self-care (01) ==
LOC: RADXRMAIN 11:27
PROVIDERS: ATTEND Internal Medicine
DX: R05.9 Cough, unspecified (principal)
CPT/HCPCS: 71046

== ENCOUNTER 2022-11-05 05:21 | Inpatient (IN) | payer MEDICARE, OTHER ==
--- NOTE | 2022-11-05 05:57 | XR ---
EXAMINATION TYPE: XR chest 2V DATE OF EXAM: 11/05/2022 COMPARISON: 09/04/2022 HISTORY: Short of breath TECHNIQUE: 2 views FINDINGS: Heart and mediastinum are normal. Lungs are clear. Diaphragm is normal. The bony thorax is intact. The pulmonary vascularity is normal. IMPRESSION: Normal chest. No change.
[2022-11-05 06:01] LABS: Basophils # (A) 0.1 k/uL (0-0.2); Basophils % (A) 1 %; Eosinophils # (A) 0.8 k/uL (0-0.7); Eosinophils % (A) 10 %; HCT 38.7 % (34.0-46.0); HGB 12.7 gm/dL (11.4-16.0); Lymphocytes # (A) 2.8 k/uL (1.0-4.8); Lymphocytes % (A) 37 %; MCH 29.2 pg (25.0-35.0); MCHC 32.9 g/dL (31.0-37.0); MCV 88.7 fL (80.0-100.0); Mean Platelet Volume 7.5; Monocytes # (A) 0.6 k/uL (0-1.0); Monocytes % (A) 8 %; Neutrophils # (A) 3.1 k/uL (1.3-7.7); Neutrophils % (A) 40 %; Platelet Count 395 k/uL (150-450); RBC 4.36 m/uL (3.80-5.40); RDW 13.3 % (11.5-15.5); WBC 7.6 k/uL (3.8-10.6)
[2022-11-05] MEDS ORDERED: methylPREDNISolone SOD SUCCI 125 MG/2 ML VIAL IV STA (06:20)
[2022-11-05] MEDS ORDERED: IPRATROPIUM-ALBUTEROL 3 ML NEB INHALATION STA (06:20)
[2022-11-05 06:22] LABS: ALT 25 U/L (4-34); AST 30 U/L (14-36); African American GFR (CKD) >90 (>60 ml/min/1.73 sqM); Albumin 4.3 g/dL (3.5-5.0); Alkaline Phosphatase 87 U/L (38-126); Anion Gap 6 mmol/L; Blood Urea Nitrogen 11 mg/dL (7-17); Calcium 9.4 mg/dL (8.4-10.2); Carbon Dioxide 27 mmol/L (22-30); Chloride 106 mmol/L (98-107); Glucose 105 mg/dL (74-99); Magnesium 1.8 mg/dL (1.6-2.3); Non-African American GFR(CKD) 85 (>60 ml/min/1.73 sqM); Potassium 4.1 mmol/L (3.5-5.1); Sodium 139 mmol/L (137-145); Total Bilirubin 0.3 mg/dL (0.2-1.3); Total Protein 7.2 g/dL (6.3-8.2)
--- NOTE | 2022-11-05 06:49 | ED ---
SOB HPI - General Chief Complaint: Shortness of Breath Stated Complaint: Difficulty Breathing, Back pain Time Seen by Provider: 11/05/22 05:59 Source: patient, RN notes reviewed Mode of arrival: wheelchair Limitations: no limitations - History of Present Illness Initial Comments: 62-year-old female presents emergency Department chief complaint of shortness of breath. Patient states she's been sick last 3 days states that she ran out of her inhaler and pharmacy did not have her medication for her. She states that she's had increase in wheezing, cough which is essentially nonproductive. She denies any pleuritic pain denies any chest pain has nausea vomiting diarrhea constipation no leg pain or leg swelling. He coughs chief ribs hurt when she co ughs. She denies any headache currently but states that she's had some on-and-off symptoms. She does not take any home oxygen. - Related Data Home Medications Medication Instructions Recorded Confirmed ALPRAZolam [Xanax] 1 mg PO HS 03/31/21 11/05/22 Eslicarbazepine Acetate [Aptiom] 800 mg PO HS 03/31/21 11/05/22 Ipratropium-Albuterol Nebulize 3 ml INHALATION RT-QID PRN 03/31/21 11/05/22 [Duoneb 0.5 mg-3 mg/3 ml Soln] Multivitamins, Thera [Multivitamin 1 tab PO DAILY 03/31/21 11/05/22 (formulary)] Omeprazole Magnesium [PriLOSEC OTC] 20 mg PO HS 03/31/21 11/05/22 PARoxetine HCL [Paxil] 40 mg PO DAILY 03/31/21 11/05/22 Simvastatin [Zocor] 40 mg PO DAILY 03/31/21 11/05/22 levETIRAcetam [Keppra Xr] 1,000 mg PO DAILY 03/31/21 11/05/22 levETIRAcetam [Keppra Xr] 1,500 mg PO HS 03/31/21 11/05/22 Albuterol Inhaler [Ventolin Hfa 2 puff INHALATION RT-Q4H PRN 02/11/22 11/05/22 Inhaler] Eslicarbazepine Acetate [Aptiom] 200 mg PO DAILY 02/11/22 11/05/22 Fluticasone Propion/Salmeterol 1 puff INHALATION RT-BID 02/11/22 11/05/22 [Advair 500-50 Diskus] Allergy Med (Unknown Otc) 1 tab PO PC-LUNCH 11/05/22 11/05/22 Allergies Allergy/AdvReac Type Severity Reaction Status Date / Time No Known Allergies Allergy Verified 11/05/22 08:06 Review of Systems ROS Statement: Those systems with pertinent positive or pertinent negative responses have been documented in the HPI. ROS Other: All systems not noted in ROS Statement are negative. Past Medical History Past Medical History: Asthma, GERD/Reflux, Seizure Disorder, Thyroid Disorder Additional Past Medical History / Comment(s): Epilepsy for 17 years History of Any Multi-Drug Resistant Organisms: None Reported Past Surgical History: Hysterectomy Additional Past Surgical History / Comment(s): Colonoscopy Past Anesthesia/Blood Transfusion Reactions: No Reported Reaction Past Psychological History: Depression Smoking Status: Former smoker Past Alcohol Use History: None Reported Past Drug Use History: None Reported - Past Family History Mother Family Medical History: Cancer Additional Family Medical History / Comment(s): Breast Father Family Medical History: Asthma, Seizure Disorder Additional Family Medical History / Comment(s): Severe allergies. General Exam Limitations: no limitations General appearance: alert, in no apparent distress Head exam: Present: atraumatic, normocephalic, normal inspection Eye exam: Present: normal appearance, PERRL, EOMI. Absent: scleral icterus, conjunctival injection, periorbital swelling ENT exam: Present: normal exam, normal oropharynx, mucous membranes moist Neck exam: Present: normal inspection, full ROM. Absent: tenderness, meningismus, lymphadenopathy Respiratory exam: Present: respiratory distress (Mild), wheezes (Diffuse bilateral), decreased breath sounds. Absent: normal lung sounds bilaterally, rales, rhonchi, stridor Cardiovascular Exam: Present: regular rate, normal rhythm, normal heart sounds. Absent: systolic murmur, diastolic murmur, rubs, gallop, clicks GI/Abdominal exam: Present: soft, normal bowel sounds. Absent: distended, tenderness, guarding, rebound, rigid Back exam: Present: tenderness (Rib tenderness) Neurological exam: Present: alert Skin exam: Present: warm, dry, intact, normal color. Absent: rash Course Vital Signs 11/05/22 11/05/22 11/05/22 05:23 05:41 06:24 Temperature 98.0 F 98.6 F Pulse Rate 92 87 77 Respiratory 16 16 16 Rate Blood Pressure 102/72 105/72 108/81 O2 Sat by Pulse 92 L 95 98 Oximetry 11/05/22 11/05/22 11/05/22 06:29 06:46 07:44 Temperature Pulse Rate 84 74 76 Respiratory Rate Blood Pressure O2 Sat by Pulse Oximetry 11/05/22 11/05/22 07:56 08:01 Temperature Pulse Rate 78 75 Respiratory 20 Rate Blood Pressure 124/85 O2 Sat by Pulse 99 Oximetry Medical Decision Making - Medical Decision Making 62-year-old female presented for shortness breath. Patient has underlying COPD. Patient's had multiple breathing treatments with minimal improvement. Patient still having chest tightness, difficulty speaking. Emesis. Patient will be admitted for COPD exacerbation with pulmonary evaluation - Lab Data Result diagrams: 11/05/22 05:40 11/05/22 05:40 Lab Results 11/05/22 11/05/22 11/05/22 Range/Units 05:40 05:40 05:40 WBC 7.6 (3.8-10.6) k/uL RBC 4.36 (3.80-5.40) m/uL Hgb 12.7 (11.4-16.0) gm/dL Hct 38.7 (34.0-46.0) % MCV 88.7 (80.0-100.0) fL MCH 29.2 (25.0-35.0) pg MCHC 32.9 (31.0-37.0) g/dL RDW 13.3 (11.5-15.5) % Plt Count 395 (150-450) k/uL MPV 7.5 Neutrophils % 40 % Lymphocytes % 37 % Monocytes % 8 % Eosinophils % 10 % Basophils % 1 % Neutrophils # 3.1 (1.3-7.7) k/uL Lymphocytes # 2.8 (1.0-4.8) k/uL Monocytes # 0.6 (0-1.0) k/uL Eosinophils # 0.8 H (0-0.7) k/uL Basophils # 0.1 (0-0.2) k/uL Sodium 139 (137-145) mmol/L Potassium 4.1 (3.5-5.1) mmol/L Chloride 106 (98-107) mmol/L Carbon Dioxide 27 (22-30) mmol/L Anion Gap 6 mmol/L BUN 11 (7-17) mg/dL Creatinine 0.76 (0.52-1.04) mg/dL Est GFR (CKD-EPI)AfAm >90 (>60 ml/min/1.73 sqM) Est GFR (CKD-EPI)NonAf 85 (>60 ml/min/1.73 sqM) Glucose 105 H (74-99) mg/dL Calcium 9.4 (8.4-10.2) mg/dL Magnesium 1.8 (1.6-2.3) mg/dL Total Bilirubin 0.3 (0.2-1.3) mg/dL AST 30 (14-36) U/L ALT 25 (4-34) U/L Alkaline Phosphatase 87 (38-126) U/L Troponin I <0.012 (0.000-0.034) ng/mL Total Protein 7.2 (6.3-8.2) g/dL Albumin 4.3 (3.5-5.0) g/dL Influenza Type A (PCR) (Not Detectd) Influenza Type B (PCR) (Not Detectd) RSV (PCR) (Not Detectd) SARS-CoV-2 (PCR) (Not Detectd) 11/05/22 Range/Units 06:02 WBC (3.8-10.6) k/uL RBC (3.80-5.40) m/uL Hgb (11.4-16.0) gm/dL Hct (34.0-46.0) % MCV (80.0-100.0) fL MCH (25.0-35.0) pg MCHC (31.0-37.0) g/dL RDW (11.5-15.5) % Plt Count (150-450) k/uL MPV Neutrophils % % Lymphocytes % % Monocytes % % Eosinophils % % Basophils % % Neutrophils # (1.3-7.7) k/uL Lymphocytes # (1.0-4.8) k/uL Monocytes # (0-1.0) k/uL Eosinophils # (0-0.7) k/uL Basophils # (0-0.2) k/uL Sodium (137-145) mmol/L Potassium (3.5-5.1) mmol/L Chloride (98-107) mmol/L Carbon Dioxide (22-30) mmol/L Anion Gap mmol/L BUN (7-17) mg/dL Creatinine (0.52-1.04) mg/dL Est GFR (CKD-EPI)AfAm (>60 ml/min/1.73 sqM) Est GFR (CKD-EPI)NonAf (>60 ml/min/1.73 sqM) Glucose (74-99) mg/dL Calcium (8.4-10.2) mg/dL Magnesium (1.6-2.3) mg/dL Total Bilirubin (0.2-1.3) mg/dL AST (14-36) U/L ALT (4-34) U/L Alkaline Phosphatase (38-126) U/L Troponin I (0.000-0.034) ng/mL Total Protein (6.3-8.2) g/dL Albumin (3.5-5.0) g/dL Influenza Type A (PCR) Not Detected (Not Detectd) Influenza Type B (PCR) Not Detected (Not Detectd) RSV (PCR) Not Detected (Not Detectd) SARS-CoV-2 (PCR) Not Detected (Not Detectd) - EKG Data -: EKG Interpreted by Me EKG Comments: EKG performed at 5 7 sinus rhythm rate of 82 OK 144 QRS 81 QT/QTC 368/406 Disposition Clinical Impression: COPD exacerbation, Dyspnea Disposition: ADMITTED IP TO THIS HOSP Condition: Fair Referrals: Koffi Carter MD [Primary Care Provider] - 1-2 days Time of Disposition: 08:35
[2022-11-05] MEDS ORDERED: KETOROLAC 15 MG/ML 1 ML VIAL IVP STA (07:07)
[2022-11-05] MEDS ORDERED: ALBUTEROL NEBULIZED 2.5 MG/3 ML INHALATION STA (07:07)
[2022-11-05] MEDS ORDERED: HYDROcodone/APAP 5-325MG 1 EACH TAB PO PRN (08:47)
[2022-11-05] MEDS ORDERED: IPRATROPIUM-ALBUTEROL 3 ML NEB INHALATION PRN (08:47)
[2022-11-05] MEDS ORDERED: NALOXONE 0.4 MG/ML 1 ML VIAL IVP PRN (08:47)
[2022-11-05] MEDS: AZITHROMYCIN 500 MG TAB PO SCH (09:45)
[2022-11-05] MEDS ORDERED: DEXTROSE 50% SYRINGE 50 ML IVP PRN ×2 (10:37)
--- NOTE | 2022-11-05 10:39 | P.HPIM ---
History of Present Illness This is a pleasant [address] Carter patient. She has chronic medical problems of asthma, COPD, hypothyroidism, seizure disorder Presents because of worsening dyspnea. Patient has been having shortness of breath over the last 2 weeks, she saw her PCP Dr. Mahoney who prescribed for antibiotic. Her dyspnea got really worse over the last 2 days associated with dry cough but no chest pain but little upper back pain. No GI or urinary symptoms, no dysuria or urgency, no vomiting and abdominal pain or diarrhea. No headache or Dizziness, weakness or numbness. She has no pets at home She is not on home oxygen and she follow up with Dr. Quiros [facility] as an outpatient. About 2.5 years ago, no alcohol or illicit drugs Vitas looks stable, she is saturating 89% on room air unremarkable cbc, bmp, liver enzymes, troponin viruses or undetected including influenza, rsv and coronavirus EKG showing normal sinus rhythm at [address]-T changes Chest x-ray: Normal chest, no changes. Review of Systems Review of systems CONSTITUTIONAL: No fever, no malaise, no fatigue. HEENT: No recent visual problems or hearing problems. Denied any sore throat. CARDIOVASCULAR: No orthopnea, PND, no palpitations, no syncope. PULMONARY: No chest wall tenderness, no hemoptysis. GASTROINTESTINAL: No diarrhea, no nausea, no vomiting, no abdominal pain. Normoactive bowel sounds. NEUROLOGICAL: No headaches, no weakness, no numbness. HEMATOLOGICAL: Denies any bleeding or petechiae. GENITOURINARY: Denies any burning micturition, frequency, or urgency. MUSCULOSKELETAL/RHEUMATOLOGICAL: Denies any joint pain, swelling, or any muscle pain. ENDOCRINE: Denies any polyuria or polydipsia. Past Medical History Past Medical History: Asthma, GERD/Reflux, Seizure Disorder, Thyroid Disorder Additional Past Medical History / Comment(s): Epilepsy for 17 years History of Any Multi-Drug Resistant Organisms: None Reported Past Surgical History: Hysterectomy Additional Past Surgical History / Comment(s): Colonoscopy Past Anesthesia/Blood Transfusion Reactions: No Reported Reaction Past Psychological History: Depression Smoking Status: Former smoker Past Alcohol Use History: None Reported Past Drug Use History: None Reported - Past Family History Mother Family Medical History: Cancer Additional Family Medical History / Comment(s): Breast Father Family Medical History: Asthma, Seizure Disorder Additional Family Medical History / Comment(s): Severe allergies. Medications and Allergies Home Medications Medication Instructions Recorded Confirmed Type ALPRAZolam [Xanax] 1 mg PO HS 03/31/21 11/05/22 History Eslicarbazepine Acetate [Aptiom] 800 mg PO HS 03/31/21 11/05/22 History Ipratropium-Albuterol Nebulize 3 ml INHALATION RT-QID PRN 03/31/21 11/05/22 History [Duoneb 0.5 mg-3 mg/3 ml Soln] Multivitamins, Thera [Multivitamin 1 tab PO DAILY 03/31/21 11/05/22 History (formulary)] Omeprazole Magnesium [PriLOSEC OTC] 20 mg PO HS 03/31/21 11/05/22 History PARoxetine HCL [Paxil] 40 mg PO DAILY 03/31/21 11/05/22 History Simvastatin [Zocor] 40 mg PO DAILY 03/31/21 11/05/22 History levETIRAcetam [Keppra Xr] 1,000 mg PO DAILY 03/31/21 11/05/22 History levETIRAcetam [Keppra Xr] 1,500 mg PO HS 03/31/21 11/05/22 History Albuterol Inhaler [Ventolin Hfa 2 puff INHALATION RT-Q4H PRN 02/11/22 11/05/22 History Inhaler] Eslicarbazepine Acetate [Aptiom] 200 mg PO DAILY 02/11/22 11/05/22 History Fluticasone Propion/Salmeterol 1 puff INHALATION RT-BID 02/11/22 11/05/22 History [Advair 500-50 Diskus] Allergy Med (Unknown Otc) 1 tab PO PC-LUNCH 11/05/22 11/05/22 History Allergies Allergy/AdvReac Type Severity Reaction Status Date / Time No Known Allergies Allergy Verified 11/05/22 08:06 Physical Exam Vitals: Vital Signs Temp Pulse Pulse Resp BP BP Pulse Ox 11/05/22 09:20 87 22 129/81 89 L 11/05/22 09:00 93 18 121/73 94 L 11/05/22 08:01 75 11/05/22 08:00 89 20 109/84 93 L 11/05/22 07:56 78 20 124/85 99 12/29/22 07:44 76 11/05/22 06:46 74 11/05/22 06:29 84 11/05/22 06:24 77 16 108/81 98 11/05/22 05:41 98.6 F 87 16 105/72 95 11/05/22 05:23 98.0 F 92 16 102/72 92 L Intake and Output 11/04/22 11/05/22 11/05/22 22:59 06:59 14:59 Other: Weight 79.379 kg GENERAL: The patient is alert and oriented x3, not in any acute distress. Well developed, well nourished. HEENT: Pupils are round and equally reacting to light. EOMI. No scleral icterus. No conjunctival pallor. Normocephalic, atraumatic. No pharyngeal erythema. No thyromegaly. CARDIOVASCULAR: S1 and S2 present. No murmurs, rubs, or gallops. -PULMONARY: Chest is clear to auscultation, no crackles. Bilateral expiratory wheezing ABDOMEN: Soft, nontender, nondistended, normoactive bowel sounds. No palpable organomegaly. MUSCULOSKELETAL: No joint swelling or deformity. EXTREMITIES: No cyanosis, clubbing, or pedal edema. NEUROLOGICAL: Gross neurological examination did not reveal any focal deficits. SKIN: No rashes. no petechiae. Results CBC & Chem 7: 11/05/22 05:40 11/05/22 05:40 Labs: Abnormal Lab Results - Last 24 Hours (Table) 11/05/22 11/05/22 Range/Units 05:40 05:40 Eosinophils # 0.8 H (0-0.7) k/uL Glucose 105 H (74-99) mg/dL Assessment and Plan Assessment: Acute COPDexacerbation mild Acute hypoxic respiratory failure secondary to above History of seizure disorder Hypothyroidism Plan: Continue with steroids IV Solu-Medrol Continue with Zithromax pulmonary consult. Continue with bronchodilator Labs and medication were reviewed.. Continue same treatment. Continue with symptomatic treatment. Resume home medication. Monitor labs and vitals. DVT and GI prophylaxis. Further recommendations as per clinical course of the patient DVT prophylaxis: Subcutaneous heparin GI Prophylaxis: Pepcid Prognosis is guarded
[2022-11-05] MEDS ORDERED: levETIRAcetam 500 MG TAB PO SCH (10:45)
[2022-11-05] MEDS ORDERED: LEVETIRACETAM PO SCH ×2 (12:00→21:00)
[2022-11-05] MEDS: methylPREDNISolone SOD SUCCI 125 MG/2 ML VIAL IV SCH ×3 (12:19→23:52)
[2022-11-05 12:22] LABS: Glucose,Whole Blood 137 mg/dL (70-110)
[2022-11-05] MEDS: IPRATROPIUM-ALBUTEROL 3 ML NEB INHALATION SCH ×3 (12:24→20:04)
[2022-11-05] MEDS: FAMOTIDINE 20 MG/2 ML VIAL IV SCH ×2 (14:16→21:41)
--- NOTE | 2022-11-05 14:54 | P.CNPUL ---
History of Present Illness Consult date: 11/05/22 Requesting physician: Koffi Carter Reason for consult: dyspnea, cough, COPD Chief complaint: Shortness of breath, COPD exacerbation. History of present illness: Pulmonary consult dated 11/05/2022. 62-year-old female, who sees Dr. Carter as a primary, and Dr. Dao as a pulmonary physician, is seen today in the emergency room, room 25. The patient comes in with a couple days of increasing shortness of breath, cough, wheezing, and some back pain. She denies any fever or chills. She hasn't been feeling well for about 2 or 3 days prior to admission. The patient apparently takes Advair diskus, 500/50, one puff twice a day, Ventolin 2 puffs as needed, and has a nebulizer machine at home. The patient has been smoking cigarettes for 36 years. Chest x-ray was done and, was normal. The patient looks very comfortable in the emergency department, and was only on room air. She was not receiving any IV fluids. She was not manifesting any signs or symptoms of respiratory distress, audible wheezing, or use of accessory muscles. CBC was completely normal. Also, her comprehensive metabolic profile, with nearly completely normal, with a glucose of 105. Troponins were negative. Chest x- ray, showed no acute pulmonary process. Review of Systems REVIEW OF SYSTEMS: CONSTITUTIONAL: [Negative.] NEUROLOGIC: [ Negative.] HEENT: [ Negative.] CARDIAC: [Negative.] PULMONARY: Shortness of breath, cough, wheezing, and back pain. GI: [Negative.] : [Negative.] RHEUMATOLOGIC: [ Negative.] IMMUNOLOGIC: [ Negative.] ENDOCRINE: [Negative. ] DERMATOLOGIC: [Negative.] Past Medical History Past Medical History: Asthma, GERD/Reflux, Seizure Disorder, Thyroid Disorder Additional Past Medical History / Comment(s): Epilepsy for 17 years History of Any Multi-Drug Resistant Organisms: None Reported Past Surgical History: Hysterectomy Additional Past Surgical History / Comment(s): Colonoscopy Past Anesthesia/Blood Transfusion Reactions: No Reported Reaction Past Psychological History: Depression Smoking Status: Former smoker Past Alcohol Use History: None Reported Past Drug Use History: None Reported - Past Family History Mother Family Medical History: Cancer Additional Family Medical History / Comment(s): Breast Father Family Medical History: Asthma, Seizure Disorder Additional Family Medical History / Comment(s): Severe allergies. Medications and Allergies Home Medications Medication Instructions Recorded Confirmed Type ALPRAZolam [Xanax] 1 mg PO HS 03/31/21 11/05/22 History Eslicarbazepine Acetate [Aptiom] 800 mg PO HS 03/31/21 11/05/22 History Ipratropium-Albuterol Nebulize 3 ml INHALATION RT-QID PRN 03/31/21 11/05/22 History [Duoneb 0.5 mg-3 mg/3 ml Soln] Multivitamins, Thera [Multivitamin 1 tab PO DAILY 03/31/21 11/05/22 History (formulary)] Omeprazole Magnesium [PriLOSEC OTC] 20 mg PO HS 03/31/21 11/05/22 History PARoxetine HCL [Paxil] 40 mg PO DAILY 03/31/21 11/05/22 History Simvastatin [Zocor] 40 mg PO DAILY 03/31/21 11/05/22 History levETIRAcetam [Keppra Xr] 1,000 mg PO DAILY 03/31/21 11/05/22 History levETIRAcetam [Keppra Xr] 1,500 mg PO HS 03/31/21 11/05/22 History Albuterol Inhaler [Ventolin Hfa 2 puff INHALATION RT-Q4H PRN 02/11/22 11/05/22 History Inhaler] Eslicarbazepine Acetate [Aptiom] 200 mg PO DAILY 02/11/22 11/05/22 History Fluticasone Propion/Salmeterol 1 puff INHALATION RT-BID 02/11/22 11/05/22 History [Advair 500-50 Diskus] Allergy Med (Unknown Otc) 1 tab PO PC-LUNCH 11/05/22 11/05/22 History Allergies Allergy/AdvReac Type Severity Reaction Status Date / Time No Known Allergies Allergy Verified 11/05/22 08:06 Physical Exam Osteopathic Statement: *. No significant issues noted on an osteopathic structural exam other than those noted in the History and Physical/Consult. Vitals: Vital Signs Temp Pulse Pulse Resp BP BP Pulse Ox 11/05/22 14:00 97.5 F L 96 18 121/75 94 L 12/29/22 12:32 92 11/05/22 12:25 90 11/05/22 12:00 96 18 141/88 92 L 11/05/22 11:00 90 18 129/77 92 L 11/05/22 10:00 90 18 92 L 11/05/22 09:20 87 22 129/81 89 L 11/05/22 09:00 93 18 121/73 94 L 11/05/22 08:01 75 11/05/22 08:00 89 20 109/84 93 L 11/05/22 07:56 78 20 124/85 99 11/05/22 07:44 76 11/05/22 06:46 74 11/05/22 06:29 84 11/05/22 06:24 77 16 108/81 98 11/05/22 05:41 98.6 F 87 16 105/72 95 11/05/22 05:23 98.0 F 92 16 102/72 92 L Intake and Output 11/04/22 11/05/22 11/05/22 22:59 06:59 14:59 Other: Weight 79.379 kg No acute distress, oriented 3. No conversational dyspnea, use of accessory muscles, or audible wheezing. HEENT examination is grossly unremarkable. Neck supple. Full range of motion. No adenopathy thyromegaly or neck vein distention. Cardiovascular examination reveals regular rhythm rate. S1-S2 normal. No S3 or S4. No discernible murmur noted. Heart rate 92 bpm. Lungs reveal expiratory wheezes and rhonchi. Breath sounds equal. Slight pr olongation noted. No crackles. Room air saturations between 92 and 94%. Abdomen soft bowel sounds are heard. No masses or tenderness. Extremities are intact. No cyanosis clubbing or edema. Skin is without rash or lesion. Neurologic examination is brief but nonfocal. Results - Laboratory Findings CBC and BMP: 11/05/22 05:40 11/05/22 05:40 Abnormal lab findings: Abnormal Labs 11/05/22 11/05/22 11/05/22 05:40 05:40 12:21 Eosinophils # 0.8 H Glucose 105 H POC Glucose (mg/dL) 137 H - Diagnostic Findings Chest x-ray: image reviewed Assessment and Plan Assessment: Acute exacerbation of chronic obstructive pulmonary disease. Previous history of significant tobacco use. History of gastroesophageal reflux disease. History of seizure disorder, for 17 years. History of hyperlipidemia. History of GERD. History of depression. Plan: Plan dated 11/05/2022. The patient is seen in the emergency room, room 25. The patient appears to be relatively comfortable. She's on room air. She's not receiving any IV fluids. Her labs, for the most part, are normal. Chest x-ray is also normal. The patient's on Zithromax, Symbicort, updrafts with albuterol and ipratropium bromide, and Solu-Medrol. The patient could likely be discharged home in the n ext 24 hours. The admission in my opinion is very weak. No additional recommendations are made. Time with Patient: Greater than 30
[2022-11-05] MEDS: INSULIN ASPART (NovoLOG) 100 UNIT/ML VIAL SQ SCH ×3 (15:05→21:41)
[2022-11-05] MEDS: LEVETIRACETAM PO SCH (17:03)
[2022-11-05 17:13] LABS: Glucose,Whole Blood 153 mg/dL (70-110)
[2022-11-05] MEDS: SYMBICORT 160-4.5 MCG INHALER INHALATION SCH (20:04)
[2022-11-05 20:43] LABS: Glucose,Whole Blood 154 mg/dL (70-110)
[2022-11-05] MEDS ORDERED: FAMOTIDINE 20 MG/2 ML VIAL IV SCH (21:00)
[2022-11-05] MEDS ORDERED: ATORVASTATIN 40 MG TAB PO SCH (21:00)
[2022-11-05] MEDS ORDERED: ESLICARBAZEPINE ACETATE 800 MG PO SCH (21:00)
[2022-11-05] MEDS ORDERED: ALPRAZolam 1 MG TAB PO SCH (21:00)
[2022-11-05] MEDS: HEPARIN SODIUM,PORCINE/PF 5,000 UNIT/0.5 ML SYRINGE SQ SCH (21:42)
[2022-11-06] MEDS: methylPREDNISolone SOD SUCCI 125 MG/2 ML VIAL IV SCH (05:57)
[2022-11-06] MEDS: SYMBICORT 160-4.5 MCG INHALER INHALATION SCH (07:14)
[2022-11-06] MEDS: IPRATROPIUM-ALBUTEROL 3 ML NEB INHALATION SCH ×2 (07:14→11:16)
[2022-11-06 07:16] LABS: Glucose,Whole Blood 149 mg/dL (70-110)
[2022-11-06 07:41] VITALS: BP 118/65; RESP 18; TEMP 97.9
[2022-11-06] MEDS: INSULIN ASPART (NovoLOG) 100 UNIT/ML VIAL SQ SCH ×2 (08:02→12:08)
[2022-11-06] MEDS ORDERED: PARoxetine 20 MG TAB PO SCH (09:00)
[2022-11-06] MEDS ORDERED: ESLICARBAZEPINE ACETATE 200 MG PO SCH (09:00)
[2022-11-06] MEDS: AZITHROMYCIN 500 MG TAB PO SCH (09:22)
[2022-11-06] MEDS: HEPARIN SODIUM,PORCINE/PF 5,000 UNIT/0.5 ML SYRINGE SQ SCH (09:23)
[2022-11-06] MEDS: FAMOTIDINE 20 MG/2 ML VIAL IV SCH (09:23)
[2022-11-06] MEDS: LEVETIRACETAM PO SCH (09:29)
[2022-11-06 11:07] LABS: Glucose,Whole Blood 163 mg/dL (70-110)
[2022-11-06 11:19] VITALS: PULSE 88
--- NOTE | 2022-11-06 15:20 | P.PN ---
Subjective Progress Note Date: 11/06/22 62-year-old female, who sees Dr. Carter as a primary, and Dr. Dao as a pulmonary physician, is seen today in the emergency room, room 25. The patient comes in with a couple days of increasing shortness of breath, cough, wheezing, and some back pain. She denies any fever or chills. She hasn't been feeling well for about 2 or 3 days prior to admission. The patient apparently takes Advair diskus, 500/50, one puff twice a day, Ventolin 2 puffs as needed, and has a nebulizer machine at home. The patient has been smoking cigarettes for 36 years. Chest x-ray was done and, was normal. The patient looks very comfortable in the emergency department, and was only on room air. She was not receiving any IV fluids. She was not manifesting any signs or symptoms of respiratory distress, audible wheezing, or use of accessory muscles. CBC was completely normal. Also, her comprehensive metabolic profile, with nearly completely normal, with a glucose of 105. Troponins were negative. Chest x- ray, showed no acute pulmonary process. The patient is seen today 11/06/2022 in follow-up on the regular medical floor. She is currently sitting up in a chair at the bedside. Awake and alert in no acute distress. She is improved and nearly back to her baseline. Less short of breath. Less bronchus spastic and wheezy. She is maintaining good O2 saturations in the upper 90s on 2 L/m per nasal cannula. No IV fluids. Blood glucose 149. She remains on DuoNeb inhalations, Symbicort, IV Solu-Medrol. Heparin for DVT prophylaxis. Empiric antibiotics in the form of azithromycin. Objective - Vital Signs Vital signs: Vital Signs Temp 97.9 F 11/06/22 07:17 Pulse 88 11/06/22 11:29 Resp 18 11/06/22 07:17 BP 118/65 11/06/22 07:17 Pulse Ox 89 L 11/06/22 10:01 FiO2 Intake & Output 11/05/22 11/06/22 11/06/22 18:59 06:59 18:59 Intake Total 300 Balance 300 Weight 79.379 kg Intake: Oral 300 Other: # Voids 1 1 - Exam GENERAL EXAM: Alert, very pleasant 62-year-old female, on 2 L nasal cannula, comfortable in no apparent distress. HEAD: Normocephalic. EYES: Normal reaction of pupils, equal size. NOSE: Clear with pink turbinates. THROAT: No erythema or exudates. NECK: No masses, no JVD. CHEST: No chest wall deformity. LUNGS: Equal air entry with bilateral end expiratory wheeze, diminished. CVS: S1 and S2 normal with no audible murmur, regular rhythm. ABDOMEN: No hepatosplenomegaly, normal bowel sounds, no guarding or rigidity. SPINE: No scoliosis or deformity SKIN: No rashes CENTRAL NERVOUS SYSTEM: No focal deficits, tone is normal in all 4 extremities. EXTREMITIES: There is no peripheral edema. No clubbing, no cyanosis. Peripheral pulses are intact. - Labs CBC & Chem 7: 11/05/22 05:40 11/05/22 05:40 Labs: Abnormal Lab Results - Last 24 Hours (Table) 11/05/22 11/05/22 11/06/22 Range/Units 17:11 20:34 07:15 POC Glucose (mg/dL) 153 H 154 H 149 H (70-110) mg/dL 11/06/22 Range/Units 11:06 POC Glucose (mg/dL) 163 H (70-110) mg/dL Assessment and Plan Assessment: Acute exacerbation of chronic obstructive pulmonary disease. Previous history of significant tobacco use. History of gastroesophageal reflux disease. History of seizure disorder, for 17 years. History of hyperlipidemia. History of GERD. History of depression. Plan: The patient was seen and evaluated Medications and labs reviewed Stable and back to her baseline Cleared for discharge from pulmonary standpoint Evaluated for possible home oxygen Continue her home pulmonary medications Complete a course of antibiotics Complete prednisone taper starting at 40 mg daily for 4 days Follow-up in the office in 1 week I have personally seen and examined the patient, performed the documentation and the assessment and plan as written. Number of minutes spent on the visit: 10.
--- NOTE | 2022-11-06 20:54 | P.DS ---
Providers Date of admission: 11/05/22 09:24 Attending physician: Lucrecia Blakely Consults: 11/05/22 08:48 Consult Physician Urgent Consulting Provider: Aldo Quiros Consult Reason/Comments: COPD exacerbation Do you want consulting provider notified?: Yes Primary care physician: Koffi Carter [facility] Course: Diagnoses: Acute COPDexacerbation mild Acute hypoxic respiratory failure secondary to above History of seizure disorder Hypothyroidism Hospital course: This is a pleasant [address] Carter patient. She has chronic medical problems of asthma, COPD, hypothyroidism, seizure disorder Presents because of worsening dyspnea. Found to have acute COPD, pulmonary team evaluated the patient, she was treated with IV Solu-Medrol and Zithromax and she showed interval improvement The day of discharge her dyspnea significantly improved, no chest pain, no other new symptoms She's been discharged on tapering steroids and to continue her short course of oral antibiotic was Zithromax Patient was cleared for discharge by pulmonary service Patient evaluated and she does not qualify for home oxygen, her oxygen drops with exertion down to 89% and she needs to be at least 88% or less to be qu alified, discussed with hospital social worker. Patient denies any other new symptoms. Problems and management plan were discussed with the patient and he verbalized understanding and acceptance Patient was found stable and can be discharged home in guarded prognosis however he needs follow-up as an outpatient. Patient was instructed to follow up with PCP Dr. Carter within one week and patient agrees Patient was instructed to follow up with quality control operator Dr. Quiros in one week and she agrees to call and make appointment Physical exam Gen: patient is a AAOx3, no distress CVS: S1-S2, RRR, no murmur Lungs: B/L CTA, no wheezing Abdomen: soft, no distention, no tenderness, positive bowel sounds Extremity: no leg edema or induration Time spent more than 35 minutes Patient Condition at Discharge: Fair Plan - Discharge Summary Discharge Rx Participant: Yes New Discharge Prescriptions: New predniSONE 10 mg PO DIRECTED #40 tab Azithromycin [Zithromax] 500 mg PO DAILY 2 Days #2 tab Continue Multivitamins, Thera [Multivitamin (formulary)] 1 tab PO DAILY levETIRAcetam [Keppra Xr] 1,000 mg PO DAILY ALPRAZolam [Xanax] 1 mg PO HS Eslicarbazepine Acetate [Aptiom] 200 mg PO DAILY Fluticasone Propion/Salmeterol [Advair 500-50 Diskus] 1 puff INHALATION RT- BID Allergy Med (Unknown Otc) 1 tab PO PC-LUNCH Omeprazole Magnesium [PriLOSEC OTC] 20 mg PO HS #30 tab Simvastatin [Zocor] 40 mg PO DAILY PARoxetine HCL [Paxil] 40 mg PO DAILY levETIRAcetam [Keppra Xr] 1,500 mg PO HS Eslicarbazepine Acetate [Aptiom] 800 mg PO HS Albuterol Inhaler [Ventolin Hfa Inhaler] 2 puff INHALATION RT-Q4H PRN #1 each PRN Reason: Shortness Of Breath Discontinued Ipratropium-Albuterol Nebulize [Duoneb 0.5 mg-3 mg/3 ml Soln] 3 ml INHALATION RT-QID PRN PRN Reason: Shortness Of Breath Discharge Medication List ALPRAZolam [Xanax] 1 mg PO HS 03/31/21 [History] Eslicarbazepine Acetate [Aptiom] 800 mg PO HS 03/31/21 [History] Multivitamins, Thera [Multivitamin (formulary)] 1 tab PO DAILY 03/31/21 [Hist ory] PARoxetine HCL [Paxil] 40 mg PO DAILY 03/31/21 [History] Simvastatin [Zocor] 40 mg PO DAILY 03/31/21 [History] levETIRAcetam [Keppra Xr] 1,000 mg PO DAILY 03/31/21 [History] levETIRAcetam [Keppra Xr] 1,500 mg PO HS 03/31/21 [History] Eslicarbazepine Acetate [Aptiom] 200 mg PO DAILY 02/11/22 [History] Fluticasone Propion/Salmeterol [Advair 500-50 Diskus] 1 puff INHALATION RT-BID 02/11/22 [History] Allergy Med (Unknown Otc) 1 tab PO PC-LUNCH 11/05/22 [History] Albuterol Inhaler [Ventolin Hfa Inhaler] 2 puff INHALATION RT-Q4H PRN #1 each 11/06/22 [Rx] Azithromycin [Zithromax] 500 mg PO DAILY 2 Days #2 tab 11/06/22 [Rx] Omeprazole Magnesium [PriLOSEC OTC] 20 mg PO HS #30 tab 11/06/22 [Rx] predniSONE 10 mg PO DIRECTED #40 tab 11/06/22 [Rx] Follow up Appointment(s)/Referral(s): Aldo Quiros DO [Doctor of Osteopathic Medicine] - 11/30/22 9:15 am Koffi Carter MD [Primary Care Provider] - 1-2 days (The office is closed please call and make your follow up appointment.) Patient Instructions/Handouts: Albuterol (By breathing), Prednisone (By mouth), Omeprazole (By mouth), Azithromycin (By mouth), COPD (Chronic Obstructive Pulmonary Disease) (DC) Activity/Diet/Wound Care/Special Instructions: Low carbohydrate diet Activity is restricted until you see your doctor Discharge Disposition: HOME SELF-CARE
[2022-11-06] MEDS ORDERED: FAMOTIDINE 20 MG TAB PO SCH (21:00)
[2022-11-07] MEDS ORDERED: predniSONE 20 MG TAB PO SCH (09:00)
== END 2022-11-06 13:02 | disposition home or self-care (01) | DRG 190 ==
LOC: EC 05:21 → 5NMEDONC 09:24
PROVIDERS: ADMIT Hospitalist; ATTEND Hospitalist
DX: J44.1 Chronic obstructive pulmonary disease with (acute) exacerbation (principal); J96.01 Acute respiratory failure with hypoxia; G40.909 Epilepsy, unspecified, not intractable, without status epilepticus; E03.9 Hypothyroidism, unspecified; Z20.822 Contact with and (suspected) exposure to COVID-19; E78.5 Hyperlipidemia, unspecified; K21.9 Gastro-esophageal reflux disease without esophagitis; F32.A Depression, unspecified; M54.9 Dorsalgia, unspecified; Z79.51 Long term (current) use of inhaled steroids; Z79.899 Other long term (current) drug therapy; Z87.891 Personal history of nicotine dependence; Z82.5 Family history of asthma and other chronic lower respiratory diseases
CPT/HCPCS: 36415; 71046; 80053; 83735; 84484; 85025; 87636; 93005; 94640; 96374; 96375; 99285

== ENCOUNTER → 2024-01-26 | Outpatient (CLI) | payer MEDICARE ==
--- NOTE | 2024-01-26 11:40 | XR ---
EXAMINATION TYPE: XR knee complete LT DATE OF EXAM: 01/26/2024 10:35 AM CLINICAL INDICATION:Female, 63 years old with history of M25.562 Left knee pain; [facility] COMPARISON: None. TECHNIQUE: XR knee complete LT; examined in Frontal, lateral and oblique projections. FINDINGS: No evidence of any acute osseous pathology, soft tissue swelling is noted. There is a sma ll joint effusion noted. IMPRESSION: 1. Small joint effusion is suggested, No acute osseous pathology. Consider MRI if there remains pain. 2. Mild tricompartmental osteoarthritic changes.
== END | disposition home or self-care (01) ==
LOC: RADXRMAIN 10:22
PROVIDERS: ATTEND Internal Medicine
DX: M17.12 Unilateral primary osteoarthritis, left knee (principal); M25.462 Effusion, left knee; S80.912A Unspecified superficial injury of left knee, initial encounter; W19.XXXA Unspecified fall, initial encounter

== ENCOUNTER → 2024-01-26 | Outpatient (CLI) | payer MEDICARE ==
[2024-01-27 06:32] LABS: Levetiracetam (Keppra) 23.7 ug/mL (3.0-60.0)
== END | disposition home or self-care (01) ==
LOC: LABWHC1 10:42
PROVIDERS: ATTEND Psychiatry & Neurology Neurology
DX: G40.009 Localization-related (focal) (partial) idiopathic epilepsy and epileptic syndromes with seizures of localized onset, not intractable, without status epilepticus (principal); Z79.899 Other long term (current) drug therapy
CPT/HCPCS: 36415; 80177; 80183; 84295

== ENCOUNTER → 2024-08-04 | Outpatient (CLI) | payer MEDICARE ==
--- NOTE | 2024-08-07 13:35 | MM ---
Reason for Exam: Screening (asymptomatic). Last mammogram was performed 3 year(s) and 9 month(s) ago. Patient History: Menarche at age 12. First Full-Term at age 22. Left ovary removed at age 41. Right ovary removed at age 41. Hysterectomy at age 41. Postmenopausal. Maternal grandmother had breast cancer. Maternal aunt had breast cancer. Mother had breast cancer, age 50. Risk Values: Susanne 5 year model risk: 3.2%. NCI Lifetime model risk: 14.0%. Prior Study Comparison: 06/14/2017 Bilateral Screening Mammogram, [facility]. 02/22/2019 Bilateral Screening Mammogram, [facility]. 10/24/2020 Bilateral Screening Mammogram, [facility]. Tissue Density: There are scattered areas of fibroglandular density. Findings: Analyzed By CAD. Right breast: There is no suspicious group of microcalcifications or new suspicious mass. Left breast: There is no suspicious group of microcalcifications or new suspicious mass. Overall Assessment: Negative, BI-RAD 1 Management: Screening Mammogram of both breasts in [address] [facility] will attempt to contact patient to return for supplemental views and ultrasound if indicated. Patient should continue monthly self-breast exams. A clinical breast exam by your physician is recommended on an annual basis. This exam should not preclude additional follow-up of suspicious palpable abnormalities. Note on Susanne scores and lifetime risk: 1. A Susanne score greater than 3% is considered moderate risk. If this is the case, consider specialist referral to assess eligibility for a risk reducing agent. 2. If overall lifetime risk for the development of breast cancer is 20% or higher, the patient may qualify for future screening with alternating mammogram and breast MRI. [facility], , 08/07/2024 1:32 PM. Electronically signed and approved by: Aldo Christian DO
== END | disposition home or self-care (01) ==
LOC: RADMAMWWP 13:50
PROVIDERS: ATTEND Internal Medicine
CPT/HCPCS: 77063; 77067

== ENCOUNTER → 2025-03-23 | Outpatient (CLI) | payer MEDICARE ==
--- NOTE | 2025-03-25 17:31 | CT ---
EXAMINATION TYPE: CT chest wo con DATE OF EXAM: 03/23/2025 4:53 PM COMPARISON: None available. CLINICAL INDICATION: Female, 64 years old with history of J45.50 G47.33 J44.89 R07.9 E66.9 J45.909; P HH, Pt was unsure of why the exam was being done, said "to look at lungs". TECHNIQUE: Multiple axial images were obtained through the chest. Sagittal and coronal reformats were created for review. MIP was performed on a separate workstation. CT DLP: 533 mGycm, Automated exposure control for dose reduction was used. FINDINGS: LUNGS/ PLEURA: The lung parenchyma appears unremarkable. 3 mm pulmonary nodule in the right upper lo be (61). Pleural-based 3 mm nodule in the right upper lobe (24-61). 4 mm pleural-based nodule medial aspect of the left lower lobe (36-61). Groundglass 3 mm nodule in the left lower lobe (30-61). AIRWAY: Patent and unremarkable. HEART: Size within normal limits.Coronary artery calcifications. MEDIASTINUM: No gross evidence of adenopathy. VASCULATURE: No aortic aneurysm. MUSCULOSKELETAL: No acute osseous abnormalities SOFT TISSUES/LYMPH NODES: Unremarkable. LOWER NECK: No significant findings. UPPER ABDOMEN: No significant acute findings. Previous cholecystectomy. IMPRESSION: 1. No acute abnormality in the chest. 2. Coronary artery calcifications. 3. Subcentimeter pulmonary nodules measuring up to 4 mm in the left lower lobe. Follow-up CT chest i maging in 12 months would be recommended in a high-risk patient per Fleischner Society guidelines. [facility], , 03/25/2025 5:29 PM
== END | disposition home or self-care (01) ==
LOC: RADCTMAIN 16:14
PROVIDERS: ATTEND Internal Medicine Pulmonary Disease
DX: J45.50 Severe persistent asthma, uncomplicated (principal); G47.33 Obstructive sleep apnea (adult) (pediatric); J44.89 Other specified chronic obstructive pulmonary disease; E07.9 Disorder of thyroid, unspecified; E66.9 Obesity, unspecified; J45.909 Unspecified asthma, uncomplicated; I25.10 Atherosclerotic heart disease of native coronary artery without angina pectoris; R91.8 Other nonspecific abnormal finding of lung field
CPT/HCPCS: 71250